=== PATIENT | male | born 1980 | race Asian ===

== ENCOUNTER 2018-10-29 04:10 | Emergency (ER) | payer OTHER, SELFPAY ==
[2018-10-29 04:11] VITALS: BP 216/138; PULSE 93; RESP 20; TEMP 36.3; O2SAT 98; BMI 32.3
--- NOTE | 2018-10-29 04:12 | CT_ITS ---
STUDY: CT ABDOMEN AND PELVIS WITHOUT CONTRAST REASON FOR EXAM: Male, 38 years old. Severe right flank pain since 3:00 AM. Elevated blood pressure. History of kidney stones treated with lithotripsy. RADIATION DOSAGE (If Supplied By Facility): CTDIvol = ( 8.48 ) mGy, DLP = ( 413.23 ) mGycm TECHNIQUE: Transaxial images were obtained from the dome of the diaphragm to the symphysis pubis without oral contrast, and without intravenous contrast. Sagittal and coronal images were reconstructed. Individualized dose optimization techniques were used for this CT. COMPARISON: 01/17/2016. FINDINGS: The visualized lung bases are unremarkable. The visualized portions of the heart are within normal limits. There is decreased attenuation of the liver consistent with steatosis. Normal gallbladder and extrahepatic biliary system. Normal spleen. Normal pancreas. Normal bilateral adrenal glands. There is a 2 mm nonobstructive right upper pole renal calculus. There is moderate hydronephrosis of the right kidney. As seen on axial images 125-126, there is a 4 mm wide distal right ureteral calculus at the S2 level. There are 6 nonobstructive left renal calculi, ranging up to 3 mm. There is an area of cortical scarring in the lateral mid left kidney. There is no demonstrated left ureteral calculus or hydronephrosis. Normal visualized stomach. Normal small intestine. Normal colon. The appendix is visualized on axial images 106-128 and it appears normal.. Normal abdominal aorta. Normal inferior vena cava. Normal retroperitoneum. Normal urinary bladder. Normal abdominal wall. There are multilevel degenerative changes of the visualized lumbar spine. There is grade 1 retrolisthesis at the L4-5 level, on a degenerative basis. CT/Abdomen/Pelvis without Cont IMPRESSION: 4 mm wide distal right ureteral calculus at the S2 level. There is associated moderate right hydronephrosis and right hydroureter. Small nonobstructive renal calculi bilaterally. Left renal cortical scarring. Fatty liver. Electronically Signed: Jovanny Michel MD at 5:12 EST , Service support ,
[2018-10-29] MEDS: Morphine 4 MG/ML Syringe IV (04:18)
[2018-10-29] MEDS: Ondansetron 4 MG/2 ML Vial IV (04:18)
[2018-10-29] MEDS: Ketorolac 30 MG/ML Syringe IV (04:18)
[2018-10-29] MEDS: 0.9% Normal Saline 1,000 ML 250 ML IV (04:18)
--- NOTE | 2018-10-29 04:20 | ED.DCSUM_ITS ---
- ER Visit Summary Date of Service: 10/29/18 Chief Complaint: Kidney stone History of Present Illness: The patient is a 38 M with history of kidney stones. Patient states he developed significant right flank pain around 3 AM this morning. He has not noted any recent difficulty with urination, hematuria, or back pain. He has required lithotripsy for his kidney stones in the past. Physical Examination: Vital signs significant for blood pressure 216/138, otherwise unremarkable. Patient is lying in bed. He is in significant pain. Head neck examination unremarkable. Heart is regular rate and rhythm. Lungs sounds are clear. Abdomen is soft with no focal anterior tenderness. He does have right CVA tenderness. Test Results: CBC is unremarkable. Chemistry studies reveal potassium 3.2. Normal renal function. Urinalysis shows blood but no sign of infection. CT flank shows a 4 mm distal right ureter stone at the level of S2. Moderate right hydro-is noted. Emergency Department Course and Treatment: Patient was given Toradol, morphine, Zofran, and IV fluids. On repeat evaluation pain is significantly improved. Blood pressure at this time is 160/111. Patient be given prescriptions for [place], Zofran, Toradol. He will follow-up with urology at [facility]. Treatment Plan: [] Disposition: Discharge Impression: Right-sided ureterolithiasis This note was generated with [employer] dictation software. It may contain incorrect words, spelling, and punctuation that were not noted in review of the chart prior to signing ED Disposition - Plan for ED Patient: Chief Complaint: Flank Pain Referrals: Thomas Escobar MD [Primary Care Provider] -
[2018-10-29 04:29] LABS: Absolute Lymphocyte Count 2.74 X10^3/ul (0.83-4.51); Absolute Neutrophil Count 2.1 X10^3/uL (2.0-7.7); Basophil# 0.03 X10^3/uL; Basophil% 0.5 % (0-1); Eosinophil# 0.29 X10^3/uL; Eosinophils% 5.2 % (0-5); Hematocrit 47.7 % (40-54); Hemoglobin 16.2 g/dl (13.0-16.5); Lymphocyte # 2.74 X10^3/ul (4.0); Lymphocyte % 48.9 % (19-41); Mean Corpuscular Hgb 30.1 pg (27.0-32.0); Mean Corpuscular Volume 88.5 fL (80-94); Mean Platelet Vol. 9.4 fl (6.2-12.0); Monocyte# 0.42 X10^3/uL; Monocyte% 7.5 % (0-10); Neutrophil # 2.11 X10^3/uL (2.7-7.7); Neutrophil % 37.7 % (47-70); Platelet Count 183 K/mm3 (150-450); RBC Distribution Width CV 13.9 % (11.6-14.6); RBC Distribution Width SD 45.1 fl (35.1-43.9); Red Blood Count 5.39 M/mm3 (4.6-6.2); White Blood Count 5.6 K/mm3 (4.4-11.0)
[2018-10-29 04:30] LABS: POSITIVE COUNT NO; POSITIVE DIFFERENTIAL NO; POSITIVE MORPHOLOGY NO
[2018-10-29 04:37] LABS: Anion Gap 10 (5-15); BUN 16 mg/dL (7-18); Chloride 109 mmol/L (98-107); Creatinine, Serum 1.07 mg/dL (0.70-1.30); EST Glomerular Filtration Rate 83 mL/min (>60); Est Glom Filt Rate - Afr Amer 100 mL/min (>60); Estimated Creatinine Clearance 73.71 ml/min; Glucose 117 mg/dL (74-106); Potassium 3.2 mmol/L (3.5-5.1); Sodium Level 145 mmol/L (136-145)
[2018-10-29 05:20] VITALS: BP 168/115; PULSE 85; RESP 14; O2SAT 98
[2018-10-29 05:21] LABS: Mucous, Urine 0 SEEN /hpf (<or=2+); White Blood Cells 0 SEEN /hpf (0-5)
[2018-10-29 05:22] LABS: Color, Urine Straw (Yellow); Glucose, Dipstick Normal (Normal); Ketone-Dipstick Negative (Negative); Leukocyte Esterase-Dipstick Negative /ul (Negative); Nitrite-Dipstick Negative (Negative); Occult Blood-Urine 250 /ul (Negative); Protein-Dipstick 30 mg/dl (Negative); Specific Gravity, Urine 1.015 (1.002-1.030); Urine Bilirubin Dipstick Negative (Negative); Urine Clarity Sl. Cloudy (Clear); Urine Urobilinogen Normal (Normal)
--- NOTE | 2018-10-29 05:36 | ED.DEP ---
ED Disposition - Plan for ED Patient: Disposition: Home or Assisted Living Chief Complaint: Flank Pain Instructions: ED Stone Renal W Colic Prescriptions: Hydrocodone Bitart/Apap 5-325 [[place] 5MG-325MG] 1 tablet PO Q6H PRN PRN 3 Days #10 tablet PRN Reason: Pain Ondansetron [Zofran Odt] 4 mg PO Q8H PRN PRN #10 tablet PRN Reason: Nausea Ketorolac [Toradol] 10 mg PO Q6H PRN #14 tablet PRN Reason: Pain Referrals: Thomas Escobar MD [Primary Care Provider] - Additional Instructions: Follow-up with urology at [facility] as discussed
[2018-10-29 05:37] LABS: Red Blood Cells-Urine 10-25 SEEN /hpf (0-5)
[2018-10-29 05:38] LABS: Bacteria RARE /hpf (None Seen); Squamous Epithelial Cells - UA 0-5 SEEN /hpf (0-5)
[2018-10-29 05:52] VITALS: BP 154/102; PULSE 82; RESP 16; O2SAT 97
[2018-10-29] MEDS: HYDROcodone Bitartrate/Apap 5/325 Tablet PO (05:53)
== END 2018-10-29 05:54 | disposition home or self-care (01) ==
PROVIDERS: Emergency Provider Emergency Medicine; Family Provider Family Medicine; PCP Family Medicine
DX: N13.2 Hydronephrosis with renal and ureteral calculous obstruction (principal); Z87.442 Personal history of urinary calculi; I10 Essential (primary) hypertension
CPT/HCPCS: 74176; 80048; 81001; 85025; 96361; 96374; 96375; 99283; J7030; A4216; J2405

== ENCOUNTER 2020-10-31 05:06 | Emergency (ER) | payer OTHER, SELFPAY ==
--- NOTE | 2020-10-31 | CT_ITS ---
STUDY: CT ABDOMEN AND PELVIS WITH CONTRAST REASON FOR EXAM: Male, 40 years old. RECTAL BLEEDING AND AB PAIN X 1 DAY RADIATION DOSAGE (If Supplied By Facility): CTDIvol = ( 10.78 ) mGy, DLP = ( 908.59 ) mGycm TECHNIQUE: Transaxial images were obtained from the dome of the diaphragm to the symphysis pubis with oral contrast. Oral and amp; IV Gastrografin and amp; 100mL Isovue-370 was administered. Sagittal and coronal images were reconstructed. Individualized dose optimization techniques were used for this CT. COMPARISON: 10/29/2018 FINDINGS: The visualized lung bases are unremarkable. The visualized portions of the heart are within normal limits. Normal liver. Normal gallbladder and extrahepatic biliary system. Normal spleen. Normal pancreas. Normal bilateral adrenal glands. Normal right kidney. Normal left kidney. Normal visualized stomach. Normal small intestine. Normal colon. The appendix is visualized and appears normal. Normal abdominal aorta. Normal inferior vena cava. Normal retroperitoneum. Normal urinary bladder. Normal abdominal wall. Normal osseous structures. CT/Abdomen/Pelvis WITH Contrast IMPRESSION: Normal enhanced CT of the abdomen and pelvis. Electronically Signed: Phillip Rao MD at 8:20 EST Tel , Service support ,
[2020-10-31 05:07] VITALS: PULSE 95; RESP 18; TEMP 36.9; O2SAT 98; BMI 34.7
[2020-10-31 05:09] VITALS: BP 139/93; PULSE 95; RESP 18; TEMP 36.9; O2SAT 98
[2020-10-31 05:30] LABS: Absolute Lymphocyte Count 1.72 X10^3/uL (0.83-4.51); Absolute Neutrophil Count 5.8 X10^3/uL (2.0-7.7); Basophil# 0.05 X10^3/uL; Basophil% 0.6 % (0-1); Eosinophil# 0.31 X10^3/uL; Eosinophils% 3.5 % (0-5); Hematocrit 48.1 % (40-54); Hemoglobin 15.8 g/dL (13.0-16.5); Lymphocyte # 1.72 X10^3/ul (4.0); Lymphocyte % 19.7 % (19-41); Mean Corp Hgb Conc 32.8 g/dL (32-36); Mean Corpuscular Volume 88.3 fL (80-94); Mean Platelet Vol. 8.9 fl (6.2-12.0); Monocyte# 0.86 X10^3/uL; Monocyte% 9.8 % (0-10); NRBC Flagged by Analyzer 0 % (0-5); Neutrophil # 5.77 X10^3/uL (2.7-7.7); Neutrophil % 66.1 % (47-70); Platelet Count 211 K/mm3 (150-450); RBC Distribution Width CV 13.6 % (11.6-14.6); RBC Distribution Width SD 43.7 fl (35.1-43.9); Red Blood Count 5.45 M/mm3 (4.6-6.2); White Blood Count 8.7 K/mm3 (4.4-11.0)
--- NOTE | 2020-10-31 05:32 | ED.VISSUMM ---
- ER Visit Summary Date of Service: 10/31/20 Chief Complaint: Abdominal pain History of Present Illness: The patient is a 40 M presenting with abdominal pain, blood in stool. He states this started yesterday. He states he has been straining to have bowel movements. He started having bright red blood per rectum yesterday. Denies diarrhea. Denies nausea or vomiting. He states he has pain in his rectum and his mid abdomen. Denies other complaints. Physical Examination: Vitals are stable. Patient is afebrile. Alert no acute distress. HEENT exam is unremarkable. Neck is supple. Lungs are clear and equal bilaterally. Heart is regular rate and rhythm. Abdomen is soft periumbilical tenderness with no rebound or guarding Rectal: No external hemorrhoids Extremities are unremarkable. Skin is warm and dry. Remainder of exam is unremarkable. Emergency Department Course and Treatment: Patient given IV fluids, morphine, Zofran. CBC, chemistries unremarkable. Liver lipase are normal. Stool is guaiac positive. CT abdomen pelvis is pending at this time and will be checked out to the oncoming physician. Disposition: pending Impression: Abdominal pain, lower GI bleeding This note was generated with [employer] dictation software. It may contain incorrect words, spelling, and punctuation that were not noted in review of the chart prior to signing ED Disposition - Plan for ED Patient: Referrals: Thomas Escobar MD [Primary Care Provider] -
[2020-10-31 05:54] LABS: ALB/GLOB Ratio 0.9 RATIO (0.9-2.4); AST(SGOT) 21 U/L (15-37); Alanine Aminotransfer ALT/SGPT 43 U/L (16-61); Albumin, Serum 3.6 g/dL (3.2-5.0); Alkaline Phosphatase 74 U/L (45-117); Anion Gap 5 (5-15); BUN 18 mg/dL (7-18); BUN/Creat Ratio 16.2 RATIO (10-20); Chloride 108 mmol/L (98-107); Creatinine, Serum 1.11 mg/dL (0.70-1.30); EST Glomerular Filtration Rate 79 mL/min (>60); Est Glom Filt Rate - Afr Amer 95 mL/min (>60); Estimated Creatinine Clearance 69.68 ml/min; Globulin 4.2 g/dL (2.2-4.2); Glucose 133 mg/dL (74-106); Lipase 193 U/L (73-393); Potassium 3.9 mmol/L (3.5-5.1); Protein, Total 7.8 g/dL (6.4-8.2); Sodium Level 138 mmol/L (136-145)
[2020-10-31] MEDS: 0.9% Normal Saline 1,000 ML 1000 ML IV (05:54)
[2020-10-31] MEDS: Morphine 4 MG/ML Syringe IV (05:54)
[2020-10-31] MEDS: Ondansetron 4 MG/2 ML Vial IV (05:55)
[2020-10-31 07:33] VITALS: BP 131/93; PULSE 82; RESP 16; O2SAT 99
--- NOTE | 2020-10-31 09:04 | ED.VISSUMM ---
- ER Visit Summary Date of Service: 10/31/20 Chief Complaint: [] History of Present Illness: The patient is a 40 M [] Physical Examination: [] Test Results: [] Emergency Department Course and Treatment: [] Treatment Plan: [] Disposition: [] Impression: [] This note was generated with [employer] dictation software. It may contain incorrect words, spelling, and punctuation that were not noted in review of the chart prior to signing ED Disposition - Plan for ED Patient: Disposition: Home or Assisted Living Instructions: ED Lower GI Bleeding (Stable) Prescriptions: Hydrocortisone Acetate [Anusol-Hc] 25 mg RC BID #28 supp.rect Prescription Printed Omeprazole 20 mg PO DAILY #30 capsule.dr Prescription Printed Referrals: Thomas Escobar MD [Primary Care Provider] - 2 Days Bernard Hay MD [NON-STAFF] - 5-7 Days
[2020-10-31 09:26] VITALS: BP 126/74; PULSE 74; RESP 16; O2SAT 99
== END 2020-10-31 09:27 | disposition home or self-care (01) ==
PROVIDERS: Emergency Medicine; Emergency Provider Emergency Medicine; PCP Family Medicine
DX: K62.5 Hemorrhage of anus and rectum (principal)
CPT/HCPCS: 74177; 80053; 82274; 83690; 85025; 96361; 96374; 96375; 99283; J7030; Q9967; A4216; J2405

== ENCOUNTER 2021-04-08 06:09 | Emergency (ER) | payer OTHER, SELFPAY ==
[2021-04-08 06:09] VITALS: BP 162/103; PULSE 132; RESP 25; TEMP 37.2; O2SAT 99; BMI 33.5
--- NOTE | 2021-04-08 06:19 | EKG12_ITS ---
Test Reason : SOB Blood Pressure : / mmHG Vent. Rate : 120 BPM Atrial Rate : 120 BPM P-R Int : 144 ms QRS Dur : 076 ms QT Int : 304 ms P-R-T Axes : 071 041 039 degrees QTc Int : 429 ms Sinus tachycardia Poor R wave progression Confirmed by JUAN NÚÑEZ, ABELINO ([id number]), video news editor JAMAL VALLEJO ([id number]) on 04/12/2021 6:58:51 AM Referred By: ANT Confirmed By:ABELINO MARTINEZ MD
--- NOTE | 2021-04-08 06:25 | RAD_ITS ---
STUDY: X-RAY CHEST REASON FOR EXAM: Male, 40 years old. sob TECHNIQUE: Single AP portable view of the chest. COMPARISON: None. FINDINGS: The lungs are clear and expanded. There is no demonstrated pleural abnormality. Normal size heart. Normal mediastinum and almita. Normal visualized pulmonary arteries. Normal visualized aortic arch and descending thoracic aorta. Normal visualized thoracic spine. Normal visualized ribs, clavicles, and shoulders. There is no demonstrated abnormality of the visualized soft tissue structures of the upper abdomen. RAD/Chest 1 View (Portable) IMPRESSION: Normal x-ray examination of the chest. Electronically Signed: Bryan Norton DO at 6:49 EDT Tel , Service support ,
[2021-04-08 06:30] LABS: Absolute Neutrophil Count 6.3 X10^3/uL (2.0-7.7); Basophil# 0.03 X10^3/uL; Basophil% 0.4 % (0-1); Eosinophil# 0.13 X10^3/uL; Eosinophils% 1.7 % (0-5); Hematocrit 46.2 % (40-54); Hemoglobin 15.8 g/dL (13.0-16.5); Lymphocyte % 10.3 % (19-41); Mean Corp Hgb Conc 34.2 g/dL (32-36); Mean Corpuscular Hgb 29.8 pg (27.0-32.0); Mean Corpuscular Volume 87.2 fL (80-94); Mean Platelet Vol. 9.4 fl (6.2-12.0); Monocyte# 0.52 X10^3/uL; Monocyte% 6.7 % (0-10); NRBC Flagged by Analyzer 0 % (0-5); Neutrophil # 6.29 X10^3/uL (2.7-7.7); Neutrophil % 80.6 % (47-70); Platelet Count 170 K/mm3 (150-450); RBC Distribution Width CV 13.1 % (11.6-14.6); RBC Distribution Width SD 41.2 fl (35.1-43.9); White Blood Count 7.8 K/mm3 (4.4-11.0)
--- NOTE | 2021-04-08 06:35 | EDS_ITS ---
HPI History of Present Illness Chief Complaint: Shortness of Breath Informant: patient Onset/Context/Timing Context: - (Woke with symptoms) Timing: Continuous Current Severity: Moderate Maximum Severity: Severe Narrative Narrative: Patient presents secondary to shortness of breath. Patient states he woke at 230 this morning with significant shortness of breath. He tried using his inhaler without improvement. Patient denies history of asthma or COPD. He was recently exposed to some chemicals at work that caused a lung reaction. He is now on Advair and has an albuterol rescue inhaler. He states he felt well when he went to bed last night. He does complain of some chest pain. No fever or chills. Patient did get his second Covid vaccine shot yesterday. [facility] Medical History Hypertension Kidney stones Home Medications ergocalciferol (vitamin D2) 50,000 unit PO Q7D 10/31/20 [History Last Taken Unknown] lisinopril 10 mg PO DAILY 10/31/20 [History Last Taken Unknown] albuterol sulfate 2 puff INHALATION Q6H PRN 04/08/21 [History Last Taken Unknown] fluticasone propion-salmeterol [Advair HFA] 2 puff INHALATION BID 04/08/21 [History Last Taken Unknown] Allergy/AdvReac Type Severity Reaction Status Date / Time oxycodone HCl [From Percocet] AdvReac Vomiting Verified 04/08/21 06:14 Social History Smoking Status: Never smoker [facility] ED Constitutional Constitutional ED: Denies chills or fever(s) Eyes Eyes: Denies change in vision ENT ENT ED: Denies sore throat Cardiovascular Cardiovascular: Reports chest pain Respiratory/Chest Respiratory/Chest: Reports dyspnea; Denies cough Gastrointestinal Gastrointestinal: Denies abdominal pain, diarrhea, nausea or vomiting Genitourinary Genitourinary ED: Denies dysuria Musculoskeletal Musculoskeletal: Denies back pain Integumentary Denies rash Neurologic Neurologic: Denies headache(s) or weakness Psychiatric Psychiatric: Denies anxiety or depression Endocrine Endocrinology: Denies polydipsia or polyuria Allergic/Immunologic Allergic/Immunologic ED: Denies urticaria EXAM Physical Exam Const Vital Signs: 04/08/21 06:09 04/08/21 06:19 04/08/21 07:08 Temperature 98.9 F Temperature Source Temporal Pulse Rate 132 H 107 H Respiratory Rate 25 H 23 H Respiratory Effort Short of Breath Labored Respiratory Depth Shallow Respiratory Pattern Tachypnea Blood Pressure 162/103 H 160/108 H Blood Pressure Mean 122 125 Pulse Ox 99 100 Oxygen Delivery Method Room Air Room Air Positive well nourished and well developed General Appearance ED: well developed HEENT Reports normocephalic and head/scalp atraumatic Eyes PERRL and EOMs intact bilaterally Neck supple Chest Wall inspection of chest normal and palpation of chest normal Resp clear to auscultation bilaterally Resp Narrative: Tachypnea Cardio regular rhythm Rate: tachycardic GI non-tender Auscultation: hypoactive bowel sounds Palpation: soft Extremity normal to inspection General Extremety ED: Negative for edema General Extremity: Negative for edema Neuro oriented x3 and no sensory deficits noted Sensorium / Orientation: alert Motor Exam: strength 5/5 throughout Psych mental status grossly normal Skin no rashes or lesions noted MDM MDM MDM Narrative Medical decision making narrative: Patient had EKG obtained on arrival. Portable chest x-ray and lab work is performed. Lab Data Attestation: I reviewed the patient's lab results. Labs: Laboratory Results - last 24 hr 04/08/21 04/08/21 04/08/21 06:25 06:25 06:25 WBC 7.8 RBC 5.30 Hgb 15.8 Hct 46.2 MCV 87.2 MCH 29.8 MCHC 34.2 RDW Std Deviation 41.2 RDW Coeff of Molly 13.1 Plt Count 170 MPV 9.4 Immature Gran % (Auto) 0.300 Neut % (Auto) 80.6 H Lymph % (Auto) 10.3 L [place] % (Auto) 6.7 Eos % (Auto) 1.7 Baso % (Auto) 0.4 Absolute Neuts (auto) 6.3 Absolute Lymphs (auto) 0.80 L Nucleated RBC % 0 D-Dimer Quant (PE/DVT) 0.42 Sodium 142 Potassium 3.5 Chloride 110 H Carbon Dioxide 23.0 Anion Gap 9 BUN 13 Creatinine 1.25 Estim Creat Clear Calc 61.88 Est GFR (MDRD) Af Amer 83 Est GFR (MDRD) Non-Af 68 BUN/Creatinine Ratio 10.4 Glucose 121 H Calcium 9.1 Troponin I High Sens 20.2 Radiography Chest X-Ray - ED: 1 View, Normal, Heart, Lungs and Mediastinum Diagnostic Testing: Radiology Impression Chest X-Ray 04/08/21 06:25 IMPRESSION: Normal x-ray examination of the chest. Electronically Signed: Bryan Norton DO at 6:49 EDT Tel , Service support , EKG Initial EKG: Attestation: I personally reviewed and interpreted this EKG as follows: Interpretation: Sinus Tachycardia (Sinus tach at 120. No acute ST change.) Treatment and Re-Evaluation Comments:: Patient's heart rate improved to 120 but he remained quite tachypneic. He started complaining of his face feeling funny with some numbness and tingling. Nonrebreather mask was placed over his face but not connected to oxygen. At this time heart rate is improved to 105 and respiratory rate is in the low to mid 20s. Test results are discussed with him. Chest x-ray is unremarkable. CBC is unremarkable. D-dimer is normal at 0.42. Chemistry studies are unremarkable. His troponin returns at 20. At this time patient will have a 2-hour repeat EKG and troponin performed. This was discussed with him at bedside and he is in agreement with the plan. Patient was given a dose of Solu-Medrol to help with lung inflammation in light of his prior chemical exposure. Patient will be signed out oncoming physician for final disposition. Discharge Plan Triage Chief Complaint: Shortness of Breath ED Provider: Lorena Smith Dx/Rx/DC Orders Clinical Impression: Acute dyspnea Prescriptions: No Action lisinopril 20 MG tablet 10 mg PO DAILY RF: 0 ergocalciferol (vitamin D2) 50,000 UNIT capsule 50,000 unit PO Q7D RF: 0 Advair HFA 230-21 mcg/actuation Hfa Aerosol Inhaler 2 puff INHALATION BID RF: 0 albuterol sulfate 90 mcg/actuation Hfa Aerosol Inhaler 2 puff INHALATION Q6H PRN (Reason: SOB) RF: 0 Primary Care Provider: Thomas Escobar Referrals: Thomas Escobar MD [Primary Care Provider] -
[2021-04-08 06:40] LABS: D-Dimer Quantitative (DVT/PE) 0.42 FEU/ug/m (0.27-0.49)
[2021-04-08 06:59] LABS: Anion Gap 9 (5-15); BUN 13 mg/dL (7-18); BUN/Creat Ratio 10.4 RATIO (10-20); Calcium,Total 9.1 mg/dL (8.5-10.1); Chloride 110 mmol/L (98-107); Creatinine, Serum 1.25 mg/dL (0.70-1.30); EST Glomerular Filtration Rate 68 mL/min (>60); Est Glom Filt Rate - Afr Amer 83 mL/min (>60); Estimated Creatinine Clearance 61.88 ml/min; Glucose 121 mg/dL (74-106); Potassium 3.5 mmol/L (3.5-5.1); Sodium Level 142 mmol/L (136-145); Troponin-I HS 20.2 pg/mL (3.0-78.5)
[2021-04-08] MEDS: MethylPREDNISolone 125 MG/2 ML Vial IV (07:07)
[2021-04-08 07:08] VITALS: BP 160/108; PULSE 107; RESP 23; O2SAT 100
--- NOTE | 2021-04-08 08:30 | EKG12_ITS ---
Test Reason : REPEAT Blood Pressure : / mmHG Vent. Rate : 120 BPM Atrial Rate : 120 BPM P-R Int : 150 ms QRS Dur : 078 ms QT Int : 320 ms P-R-T Axes : 060 032 026 degrees QTc Int : 452 ms Sinus tachycardia Poor R wave progression Confirmed by JUAN NÚÑEZ, ABELINO ([id number]), marketing editor JAMAL VALLEJO ([id number]) on 04/12/2021 6:59:10 AM Referred By: ANT Confirmed By:ABELINO MARTINEZ MD
[2021-04-08 09:04] LABS: Troponin-I HS 17.4 pg/mL (3.0-78.5)
[2021-04-08 09:15] VITALS: BP 137/82; PULSE 76; RESP 15; O2SAT 99
== END 2021-04-08 09:16 | disposition home or self-care (01) ==
PROVIDERS: Emergency Provider Emergency Medicine; PCP Family Medicine
DX: R06.00 Dyspnea, unspecified (principal); R06.02 Shortness of breath; I10 Essential (primary) hypertension; Z79.51 Long term (current) use of inhaled steroids; Z79.899 Other long term (current) drug therapy
CPT/HCPCS: 71045; 80048; 84484; 85025; 85379; 93005; 96374; 99284; A4216

== ENCOUNTER 2021-06-14 11:07 | Emergency (ER) | payer OTHER, SELFPAY ==
[2021-06-14 11:07] VITALS: BP 167/113; PULSE 102; RESP 16; TEMP 36.2; O2SAT 100; BMI 32.9
--- NOTE | 2021-06-14 11:24 | EKG12_ITS ---
Test Reason : SOB Blood Pressure : / mmHG Vent. Rate : 098 BPM Atrial Rate : 098 BPM P-R Int : 166 ms QRS Dur : 084 ms QT Int : 396 ms P-R-T Axes : 053 023 034 degrees QTc Int : 505 ms Normal sinus rhythm Nonspecific ST abnormality Prolonged QT Abnormal ECG Confirmed by JUAN NÚÑEZ, ABELINO ([id number]), story editor JAMAL VALLEJO ([id number]) on 06/15/2021 9:58:00 AM Referred By: Confirmed By:ABELINO MARTINEZ MD
--- NOTE | 2021-06-14 11:25 | ED.VIS.DYS ---
HPI History of Present Illness Chief Complaint: Shortness of Breath Detail of Chief Complaint: Shortness of breath off and on since January Informant: patient Narrative Narrative: Patient presents to the emergency department complaint of shortness of breath that he has had off and on since January. Patient states that he was exposed to some chemicals in January and has had intermittent difficulty breathing. Patient has been vaccinated against COVID-19. Patient states that over the last 3 days has had increasing shortness of breath. On June 02 he had pulmonary function tests and states that he was pushed too hard. Patient denies any fevers. He does complain of numbness and tingling to his entire body. He denies any chest pain currently. Patient states that the symptoms became worse while at work today. No history of anxiety or panic attacks. [facility] Medical History Hypertension Kidney stones Home Medications ergocalciferol (vitamin D2) 50,000 unit PO Q7D 10/31/20 [History Last Taken Unknown] lisinopril 10 mg PO DAILY 10/31/20 [History Last Taken Unknown] albuterol sulfate 2 puff INHALATION Q6H PRN 04/08/21 [History Last Taken Unknown] fluticasone propion-salmeterol [Advair HFA] 2 puff INHALATION BID 04/08/21 [History Last Taken Unknown] lorazepam [Ativan] 1 mg PO TID PRN #10 tab 06/14/21 [Rx Last Taken Unknown] prednisone 20 mg PO BID #6 tab 06/14/21 [Rx Last Taken Unknown] Allergy/AdvReac Type Severity Reaction Status Date / Time oxycodone HCl [From Percocet] AdvReac Vomiting Verified 06/14/21 11:12 Social History Smoking Status: Never smoker ROS ROS ED Constitutional Constitutional ED: Reports systems reviewed and no addt'l complaints, except as documented; Denies body ache(s), change in weight or chills Eyes Eyes: Denies acute decrease in peripheral vision, change in vision, double vision or loss of vision ENT ENT ED: Reports none; Denies ear pain, lip swelling, loss taste/smell, neck pain, otalgia or sore throat Cardiovascular Cardiovascular: Reports none; Denies abdominal pain, chest pain with activity, leg edema, lightheadedness, palpitations, rapid heart rate or syncope Respiratory/Chest Respiratory/Chest: Reports none and dyspnea; Denies change in mental status, dry cough, hemoptysis, shortness of breath at rest or shortness of breath with exertion Gastrointestinal Gastrointestinal: Reports none; Denies abdominal pain, change in stool character, diarrhea, hematemesis, hematochezia, melena, rectal bleeding or vomiting Genitourinary Genitourinary ED: Reports none; Denies abdominal discomfort, anuria, dysuria, genital pain or polyuria Musculoskeletal Musculoskeletal: Reports none; Denies arthralgias, back pain, difficulty walking, extremity pain, muscle weakness or myalgias Integumentary Reports none; Denies abscess or rash Neurologic Neurologic: Reports none and paresthesias; Denies abnormal gait, confusion, focal weakness, frequent falls, headache(s), loss of vision, numbness, radicular pain, vertigo or weakness Psychiatric Psychiatric: Reports systems reviewed and no addt'l complaints, except as documented and none; Denies behavioral changes, confusion, difficulty concentrating, hallucinations, suicidal ideation, tactile hallucinations or visual hallucinations Endocrine Endocrinology: Denies none, cold intolerance, excessive sweating, fatigue or heat intolerance Hematologic/Lymphatic Hematologic/Lymphatic: Reports none; Denies anemia, easy bleeding or easy bruising Allergic/Immunologic Allergic/Immunologic ED: Denies as per HPI, none, lip swelling, mouth swelling, throat swelling, tongue swelling or hives EXAM Physical Exam Narrative Exam Narrative: Patient appears anxious and is tachypneic and hyperventilating. Const Vital Signs: 06/14/21 11:07 06/14/21 12:08 06/14/21 12:13 Temperature 97.2 F L Temperature Source Temporal Pulse Rate 102 H 96 Respiratory Rate 16 19 H Respiratory Effort Short of Breath Respiratory Depth Normal Respiratory Pattern Normal Blood Pressure 167/113 H Blood Pressure Mean 131 Pulse Ox 100 Oxygen Delivery Method Room Air Room Air Positive well nourished and well developed General Appearance ED: well developed and NAD HEENT Reports TM's clear and moist mucous membranes normocephalic and atraumatic; Negative for trauma or tenderness Tympanic Membrane ED: Yes TM's clear Eyes PERRL and EOMs intact bilaterally General Eye ED: Negative for pale conjunctiva or scleral icterus Neck no lymphadenopathy, supple and no JVD General: Negative for tenderness Chest Wall inspection of chest normal and palpation of chest normal Chest: Negative for tenderness Resp normal respiratory effort and clear to auscultation bilaterally Resp Narrative: Tachypneic with some mild conversational dyspnea and hyperventilation. Effort and Inspection: Negative for respiratory distress or pain with movement Auscultation: Negative for rhonchi, wheezes or diminished lung sounds Cardio regular rate, regular rhythm, S1 normal heart sound, S2 normal heart sound and no murmurs Peripheral Pulses: pulses 2+ throughout GI normal to inspection, nondistended, normoactive bowel sounds, soft to palpation, non-tender, non-distended and no masses Back/Spine no CVA tenderness and no thoracic nor lumbar tenderness Extremity normal to inspection General Extremety ED: Negative for edema General Extremity: Negative for edema Neuro oriented x3, CN's II-XII intact bilaterally, no sensory deficits noted and gait normal Sensorium / Orientation: awake, alert, oriented to person, oriented to place and oriented to time Motor Exam: strength 5/5 throughout and strength abnormal Psych mental status grossly normal Skin no rashes or lesions noted and no wounds MDM MDM MDM Narrative Medical decision making narrative: Etiology of patient's dyspnea unclear if related to anxiety versus related to his exposure months ago to ammonia fumes and chemicals. He did not have significant wheezing on arrival. He did respond well to a DuoNeb aerosol here as well as a milligram of Ativan and he is now essentially symptom-free. I will start him on prednisone for 3 days. 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 Patient also will be given a prescription for Ativan as needed for anxiety. Lab Data Labs: Laboratory Results - last 24 hr 06/14/21 06/14/21 06/14/21 11:44 11:44 11:44 WBC 6.5 RBC 5.48 Hgb 16.2 Hct 47.5 MCV 86.7 MCH 29.6 MCHC 34.1 RDW Std Deviation 40.0 RDW Coeff of Molly 12.6 Plt Count 227 MPV 9.3 Immature Gran % (Auto) 0.200 Neut % (Auto) 45.6 L Lymph % (Auto) 41.9 H [place] % (Auto) 6.8 Eos % (Auto) 4.9 Baso % (Auto) 0.6 Absolute Neuts (auto) 3.0 Absolute Lymphs (auto) 2.72 Nucleated RBC % 0 D-Dimer Quant (PE/DVT) <= 0.27 Sodium 139 Potassium 3.1 L Chloride 107 Carbon Dioxide 26.0 Anion Gap 6 BUN 11 Creatinine 1.16 Estim Creat Clear Calc 66.68 Est GFR (MDRD) Af Amer 90 Est GFR (MDRD) Non-Af 75 BUN/Creatinine Ratio 9.5 L Glucose 99 Calcium 9.5 Troponin I High Sens 14 Radiography Chest X-Ray - ED: 1 View Diagnostic Testing: Radiology Impression Chest X-Ray 06/14/21 12:10 IMPRESSION: No radiographic evidence of acute cardiopulmonary disease. at 1249 Reported and signed by: Aquiles Merrill MD Electronically Signed: Aquiles Merrill MD at 12:48 EDT Tel , Service support , 1 view chest x-ray obtained interpreted by myself as no acute disease process. EKG Initial EKG: Comments: Sinus rhythm with a ventricular rate of [address] changes Discharge Plan Triage Chief Complaint: Shortness of Breath ED Provider: Cisco Walsh Dx/Rx/DC Orders Clinical Impression: Acute dyspnea, Anxiety Instructions: ED Anxiety Reaction, ED Dyspnea Prescriptions: New prednisone 20 mg tablet 20 mg PO BID Qty: 6 RF: 0 lorazepam [Ativan] 1 mg tablet 1 mg PO TID PRN (Reason: anxiety) Qty: 10 RF: 0 No Action lisinopril 20 MG tablet 10 mg PO DAILY RF: 0 ergocalciferol (vitamin D2) 50,000 UNIT capsule 50,000 unit PO Q7D RF: 0 Advair HFA 230-21 mcg/actuation Hfa Aerosol Inhaler 2 puff INHALATION BID RF: 0 albuterol sulfate 90 mcg/actuation Hfa Aerosol Inhaler 2 puff INHALATION Q6H PRN (Reason: SOB) RF: 0 Primary Care Provider: Remberto Woodruff NP Referrals: Remberto Woodruff NP, DIRECTOR OF ENROLLMENT-C [Primary Care Provider] - 3-5 Days Disposition Disposition: Home, Self Care
[2021-06-14] MEDS: LORazepam 2 MG/ML Syringe 1 MG IV (11:47)
[2021-06-14] MEDS: 0.9% Normal Saline 1,000 ML 150 ML IV (11:52)
[2021-06-14 11:57] LABS: Absolute Lymphocyte Count 2.72 X10^3/uL (0.83-4.51); Basophil# 0.04 X10^3/uL; Basophil% 0.6 % (0-1); Eosinophil# 0.32 X10^3/uL; Eosinophils% 4.9 % (0-5); Hematocrit 47.5 % (40-54); Hemoglobin 16.2 g/dL (13.0-16.5); Lymphocyte # 2.72 X10^3/ul (0.83-4.51); Lymphocyte % 41.9 % (19-41); Mean Corp Hgb Conc 34.1 g/dL (32-36); Mean Corpuscular Hgb 29.6 pg (27.0-32.0); Mean Corpuscular Volume 86.7 fL (80-94); Mean Platelet Vol. 9.3 fl (6.2-12.0); Monocyte# 0.44 X10^3/uL; Monocyte% 6.8 % (0-10); NRBC Flagged by Analyzer 0 % (0-5); Neutrophil # 2.96 X10^3/uL (2.7-7.7); Neutrophil % 45.6 % (47-70); Platelet Count 227 K/mm3 (150-450); RBC Distribution Width CV 12.6 % (11.6-14.6); Red Blood Count 5.48 M/mm3 (4.6-6.2); White Blood Count 6.5 K/mm3 (4.4-11.0)
[2021-06-14] MEDS: Ipratropium/Albuterol Sulfate 3 ML AMPUL.NEB INHALATION (12:07)
[2021-06-14 12:08] VITALS: PULSE 96; RESP 19
--- NOTE | 2021-06-14 12:10 | RAD_ITS ---
EXAM: XR CHEST, 1 VIEW : 1980 CLINICAL INDICATION: dyspnea TECHNIQUE: Frontal view of the chest. This report was created using [employer] report generation technology. COMPARISON: 04/08/2021 FINDINGS: LUNGS AND PLEURAL SPACES: Unremarkable. No consolidation or edema. No pneumothorax. No effusion. HEART: Unremarkable. Cardiac silhouette not enlarged. MEDIASTINUM: Central airways and mediastinal contour are unremarkable. BONES/JOINTS: Unremarkable. SOFT TISSUES: Unremarkable. RAD/Chest 1 View (Portable) IMPRESSION: No radiographic evidence of acute cardiopulmonary disease. at 1249 Reported and signed by: Aquiles Merrill MD Electronically Signed: Aquiles Merrill MD at 12:48 EDT Tel , Service support ,
[2021-06-14 12:11] LABS: D-Dimer Quantitative (DVT/PE) <= 0.27 FEU/ug/m (0.27-0.49)
[2021-06-14 12:13] VITALS: O2SAT 95
[2021-06-14 12:14] LABS: Anion Gap 6 (5-15); BUN 11 mg/dL (7-18); BUN/Creat Ratio 9.5 RATIO (10-20); Calcium,Total 9.5 mg/dL (8.5-10.1); Chloride 107 mmol/L (98-107); Creatinine, Serum 1.16 mg/dL (0.70-1.30); EST Glomerular Filtration Rate 75 mL/min (>60); Est Glom Filt Rate - Afr Amer 90 mL/min (>60); Estimated Creatinine Clearance 66.68 ml/min; Glucose 99 mg/dL (74-106); Potassium 3.1 mmol/L (3.5-5.1); Sodium Level 139 mmol/L (136-145); Troponin-I HS 14 pg/mL (3.0-78.0)
[2021-06-14 13:33] VITALS: BP 165/118; PULSE 105; RESP 16; O2SAT 96
== END 2021-06-14 13:34 | disposition home or self-care (01) ==
PROVIDERS: Emergency Provider Emergency Medicine; PCP Nurse Practitioner Family
DX: R06.00 Dyspnea, unspecified (principal); F41.9 Anxiety disorder, unspecified
CPT/HCPCS: 71045; 80048; 84484; 85025; 85379; 87426; 93005; 94640; 96361; 96374; 99285; J7030

== ENCOUNTER 2021-10-14 04:10 | Emergency (ER) | payer OTHER, SELFPAY ==
[2021-10-14 04:10] VITALS: BP 183/109; PULSE 93; RESP 23; TEMP 36.6; O2SAT 99; BMI 33.7
--- NOTE | 2021-10-14 04:19 | RAD_ITS ---
STUDY: X-RAY CHEST REASON FOR EXAM: Male, 41 years old. pain TECHNIQUE: Single AP portable view of the chest. COMPARISON: None. FINDINGS: The lungs are clear and expanded. There is no demonstrated pleural abnormality. Normal size heart. Normal mediastinum and almita. Normal visualized pulmonary arteries. Normal visualized aortic arch and descending thoracic aorta. There is a levoscoliosis of the thoracic spine. Deformity of the right upper ribs. There is no demonstrated abnormality of the visualized soft tissue structures of the upper abdomen. RAD/Chest 1 View (Portable) IMPRESSION: No demonstrated acute cardiopulmonary process. Electronically Signed: Gayle Quick MD at 5:46 EST Tel , Service support ,
--- NOTE | 2021-10-14 04:19 | EKG12_ITS ---
Test Reason : DYSRHYTHMIA Blood Pressure : / mmHG Vent. Rate : 090 BPM Atrial Rate : 090 BPM P-R Int : 170 ms QRS Dur : 082 ms QT Int : 354 ms P-R-T Axes : 048 023 026 degrees QTc Int : 433 ms Normal sinus rhythm Normal ECG Confirmed by RANDELL NÚÑEZ, DEVORA ([id number]), video news editor BHAVESH TANG ([id number]) on 10/19/2021 12:10:28 PM Referred By: ANT Confirmed By:DEVORA MEJIAS MD
--- NOTE | 2021-10-14 04:21 | EDS_ITS ---
HPI History of Present Illness Chief Complaint: Other, Pain/Inj Informant: patient Onset/Context/Timing Onset: Weeks Context: Gradual Onset Timing: Waxes and wanes Current Severity: Severe Maximum Severity: Severe Narrative Narrative: Patient presents secondary to right arm pain. He reports having right arm pain that is been waxing and waning over the past week or slightly longer. No injury. He states usually pain is worse when he lies down horizontally. When he standing upright he still feels an ache in that arm. No significant paresthesias. He is right-hand dominant. He was woken from sleep earlier this morning with severe pain in his right arm. [facility] Medical History Anxiety Hypertension Kidney stones Home Medications ergocalciferol (vitamin D2) 50,000 unit PO Q7D 10/31/20 [History Last Taken Unknown] lisinopril 10 mg PO DAILY 10/31/20 [History Last Taken Unknown] albuterol sulfate 2 puff INHALATION Q6H PRN 04/08/21 [History Last Taken Unknown] fluticasone propion-salmeterol [Advair HFA] 2 puff INHALATION BID 04/08/21 [History Last Taken Unknown] lorazepam [Ativan] 1 mg PO TID PRN #10 tab 06/14/21 [Rx Last Taken Unknown] prednisone 20 mg PO BID #6 tab 06/14/21 [Rx Last Taken Unknown] cyclobenzaprine 10 mg PO BID PRN #10 tab 10/14/21 [Rx Last Taken Unknown] naproxen [Naprosyn] 500 mg PO BID PRN #20 tab 10/14/21 [Rx Last Taken Unknown] Allergy/AdvReac Type Severity Reaction Status Date / Time oxycodone HCl [From Percocet] AdvReac Vomiting Verified 06/14/21 11:12 Social History Smoking Status: Never smoker ROS ROS ED Constitutional Constitutional ED: Denies chills or fever(s) Eyes Eyes: Denies change in vision ENT ENT ED: Denies sore throat Cardiovascular Cardiovascular: Denies chest pain Respiratory/Chest Respiratory/Chest: Denies cough or dyspnea Gastrointestinal Gastrointestinal: Denies abdominal pain, nausea or vomiting Musculoskeletal Musculoskeletal: Reports arthralgias; Denies back pain or neck pain Integumentary Denies rash Neurologic Neurologic: Denies headache(s), paresthesias or weakness Allergic/Immunologic Allergic/Immunologic ED: Denies urticaria EXAM Physical Exam Const Vital Signs: 10/14/21 04:10 Temperature 97.8 F Temperature Source Temporal Pulse Rate 93 Respiratory Rate 23 H Blood Pressure 183/109 H Blood Pressure Mean 133 Pulse Ox 99 Oxygen Delivery Method Room Air Positive well nourished and well developed General Appearance ED: well developed HEENT Reports moist mucous membranes Eyes PERRL and EOMs intact bilaterally Neck supple Chest Wall inspection of chest normal and palpation of chest normal Resp normal respiratory effort and clear to auscultation bilaterally Cardio regular rate and regular rhythm GI non-tender Palpation: soft Extremity Extremity Narrative: No reproducible tenderness with palpation along the right upper extremity. Strong distal pulses. Normal cap refill distally. No tenderness over the shoulder or cervical paraspinal muscles. Neuro oriented x3 Neuro Narrative: No focal neurologic deficits. Sensorium / Orientation: alert Psych mental status grossly normal Skin no rashes or lesions noted MDM MDM MDM Narrative Medical decision making narrative: EKG, chest x-ray, lab work obtained. Patient given morphine and Zofran for pain. Lab Data Attestation: I reviewed the patient's lab results. Labs: Laboratory Results - last 24 hr 10/14/21 10/14/21 04:30 04:30 WBC 4.5 RBC 5.02 Hgb 14.8 Hct 42.3 MCV 84.3 MCH 29.5 MCHC 35.0 RDW Std Deviation 41.8 RDW Coeff of Molly 13.5 Plt Count 183 MPV 9.5 Immature Gran % (Auto) 0.200 Neut % (Auto) 42.1 L Lymph % (Auto) 41.2 H [place] % (Auto) 9.8 Eos % (Auto) 6.0 H Baso % (Auto) 0.7 Absolute Neuts (auto) 1.9 L Absolute Lymphs (auto) 1.85 Nucleated RBC % 0 ESR 7 Sodium 141 Potassium 3.7 Chloride 112 H Carbon Dioxide 22.0 Anion Gap 7 BUN 21 H Creatinine 1.13 Estim Creat Clear Calc 67.78 Est GFR (MDRD) Af Amer 93 Est GFR (MDRD) Non-Af 77 BUN/Creatinine Ratio 18.6 Glucose 180 H Calcium 8.2 L Troponin I High Sens 12 C-React Prot Ext Range 4.12 H Radiography Chest X-Ray - ED: 1 View, Read by ED Physician and Chronic Changes Diagnostic Testing: Clinical Impression(s) from Imaging Studies Chest X-Ray 10/14/21 04:19 IMPRESSION: No demonstrated acute cardiopulmonary process. Electronically Signed: Gayle Quick MD at 5:46 EST Tel , Service support , EKG Initial EKG: Attestation: I personally reviewed and interpreted this EKG as follows: Interpretation: Sinus Rhythm (Sinus at 90 with no acute ischemia.) Treatment and Re-Evaluation Comments:: On repeat evaluation patient resting more comfortably. Blood pressure was initially elevated secondary to pain. Repeat blood pressure is 137/79. Chest x-ray reveals chronic changes only. No widened mediastinum. Lab work unremarkable including negative troponin. Patient now describes his pain more like having spasms in his arm. He will be written for naproxen along with Flexeril. Return instructions are provided. Discharge Plan Triage Chief Complaint: Other, Pain/Inj ED Provider: Lorena Smith Dx/Rx/DC Orders Clinical Impression: Arm pain, right Instructions: ED Myalgias, ED Muscle Strain, Extremity Prescriptions: New naproxen [Naprosyn] 500 mg tablet 500 mg PO BID PRN (Reason: pain) Qty: 20 RF: 0 cyclobenzaprine 10 mg tablet 10 mg PO BID PRN (Reason: muscle spasm) Qty: 10 RF: 0 No Action lisinopril 20 MG tablet 10 mg PO DAILY RF: 0 ergocalciferol (vitamin D2) 50,000 UNIT capsule 50,000 unit PO Q7D RF: 0 Advair HFA 230-21 mcg/actuation Hfa Aerosol Inhaler 2 puff INHALATION BID RF: 0 albuterol sulfate 90 mcg/actuation Hfa Aerosol Inhaler 2 puff INHALATION Q6H PRN (Reason: SOB) RF: 0 prednisone 20 mg tablet 20 mg PO BID Qty: 6 RF: 0 lorazepam [Ativan] 1 mg tablet 1 mg PO TID PRN (Reason: anxiety) Qty: 10 RF: 0 Primary Care Provider: Remberto Woodruff NP Referrals: Ranjan,Remberto RADIATOR CLEANER, RADIATOR CLEANER-C [Primary Care Provider] - 1 Week if not improving Disposition Disposition: Home, Self Care
[2021-10-14 04:32] LABS: Absolute Lymphocyte Count 1.85 X10^3/uL (0.83-4.51); Absolute Neutrophil Count 1.9 X10^3/uL (2.0-7.7); Basophil# 0.03 X10^3/uL; Basophil% 0.7 % (0-1); Eosinophil# 0.27 X10^3/uL; Hematocrit 42.3 % (40-54); Hemoglobin 14.8 g/dL (13.0-16.5); Lymphocyte # 1.85 X10^3/ul (0.83-4.51); Lymphocyte % 41.2 % (19-41); Mean Corpuscular Hgb 29.5 pg (27.0-32.0); Mean Corpuscular Volume 84.3 fL (80-94); Mean Platelet Vol. 9.5 fl (6.2-12.0); Monocyte# 0.44 X10^3/uL; Monocyte% 9.8 % (0-10); NRBC Flagged by Analyzer 0 % (0-5); Neutrophil # 1.89 X10^3/uL (2.7-7.7); Neutrophil % 42.1 % (47-70); Platelet Count 183 K/mm3 (150-450); RBC Distribution Width CV 13.5 % (11.6-14.6); RBC Distribution Width SD 41.8 fl (35.1-43.9); Red Blood Count 5.02 M/mm3 (4.6-6.2); White Blood Count 4.5 K/mm3 (4.4-11.0)
[2021-10-14] MEDS: Morphine 4 MG/ML Syringe IV (04:34)
[2021-10-14] MEDS: Ondansetron 4 MG/2 ML Vial IV (04:35)
[2021-10-14 04:47] LABS: Erythrocyte Sedimentation Rate 7 mm/hr (0-20)
[2021-10-14 04:50] LABS: Anion Gap 7 (5-15); BUN 21 mg/dL (7-18); BUN/Creat Ratio 18.6 RATIO (10-20); CRP 4.12 mg/L (0.0-3.0); Calcium,Total 8.2 mg/dL (8.5-10.1); Chloride 112 mmol/L (98-107); Creatinine, Serum 1.13 mg/dL (0.70-1.30); EST Glomerular Filtration Rate 77 mL/min (>60); Est Glom Filt Rate - Afr Amer 93 mL/min (>60); Estimated Creatinine Clearance 67.78 ml/min; Glucose 180 mg/dL (74-106); Potassium 3.7 mmol/L (3.5-5.1); Sodium Level 141 mmol/L (136-145); Troponin-I HS 12 pg/mL (3.0-78.0)
[2021-10-14 05:58] VITALS: BP 137/79; PULSE 84; RESP 17; O2SAT 97
== END 2021-10-14 05:58 | disposition home or self-care (01) ==
PROVIDERS: Emergency Provider Emergency Medicine; PCP Nurse Practitioner Family
DX: M79.601 Pain in right arm (principal); I10 Essential (primary) hypertension; F41.9 Anxiety disorder, unspecified; Z79.899 Other long term (current) drug therapy
CPT/HCPCS: 71045; 80048; 84484; 85025; 85652; 86140; 93005; 96374; 96375; 99283; J2405

== ENCOUNTER 2022-03-11 08:55 | Emergency (ER) | payer BC, SELFPAY ==
[2022-03-11 08:56] VITALS: BP 188/125; PULSE 108; RESP 16; TEMP 36.4; O2SAT 96; BMI 33.1
[2022-03-11] MEDS: Lidocaine 1% (20 ml mdv) 20 ML Vial INFILT (09:22)
--- NOTE | 2022-03-11 09:23 | EX.ED.DYSGE1 ---
HPI History of Present Illness Chief Complaint: Abscess Informant: patient Narrative Narrative: 41-year-old male presenting to the emergency department with abscess in the left axilla. Patient states it started off looking like an ingrown hair/pustule. He tried to squeeze it and it continues to grow and is now more painful. Has never had anything like this before. No fevers. [facility] Medical History Anxiety Hypertension Kidney stones Home Medications ergocalciferol (vitamin D2) 50,000 unit PO Q7D 10/31/20 [History Last Taken Unknown] lisinopril 10 mg PO DAILY 10/31/20 [History Last Taken Unknown] albuterol sulfate 2 puff INHALATION Q6H PRN 04/08/21 [History Last Taken Unknown] fluticasone propion-salmeterol [Advair HFA] 2 puff INHALATION BID 04/08/21 [History Last Taken Unknown] lorazepam [Ativan] 1 mg PO TID PRN #10 tab 06/14/21 [Rx Last Taken Unknown] prednisone 20 mg PO BID #6 tab 06/14/21 [Rx Last Taken Unknown] cyclobenzaprine 10 mg PO BID PRN #10 tab 10/14/21 [Rx Last Taken Unknown] naproxen [Naprosyn] 500 mg PO BID PRN #20 tab 10/14/21 [Rx Last Taken Unknown] cephalexin 500 mg PO Q6 #40 capsule 03/11/22 [Rx Last Taken Unknown] hydrocodone-acetaminophen 1 tab PO Q6H PRN PRN 3 Days #12 tablet 03/11/22 [Rx Last Taken Unknown] sulfamethoxazole-trimethoprim 1 tab PO BID #20 tablet 03/11/22 [Rx Last Taken Unknown] Allergy/AdvReac Type Severity Reaction Status Date / Time oxycodone HCl [From Percocet] AdvReac Vomiting Verified 03/11/22 08:56 Social History (Updated 03/11/22 @ 09:[address] Devon Benavides DO) current gender identity: male Smoking Status: Never smoker substance use type: does not use ROS ROS ED Constitutional Constitutional ED: Denies chills or weight loss Eyes Eyes: Denies change in vision or diplopia ENT ENT ED: Denies ear pain, rhinorrhea or sore throat Cardiovascular Cardiovascular: Denies chest pain, orthopnea, palpitations or racing heartbeat Respiratory/Chest Respiratory/Chest: Denies cough, dyspnea or orthopnea Gastrointestinal Gastrointestinal: Denies abdominal pain, diarrhea, nausea or vomiting Genitourinary Genitourinary ED: Denies dysuria, hematuria or urinary frequency Musculoskeletal Musculoskeletal: Denies arthralgias or myalgias Integumentary Reports abscess; Denies rash Neurologic Neurologic: Denies headache(s) or weakness Psychiatric Psychiatric: Denies anxiety, depression, suicidal ideation or suicidal thoughts Endocrine Endocrinology: Denies polydipsia, polyphagia or polyuria Allergic/Immunologic Allergic/Immunologic ED: Denies mouth swelling, tongue swelling or urticaria EXAM Physical Exam Const Vital Signs: 03/11/22 08:56 Temperature 97.6 F L Temperature Source Temporal Pulse Rate 108 H Respiratory Rate 16 Blood Pressure 188/125 H Blood Pressure Mean 146 Pulse Ox 96 Oxygen Delivery Method Room Air Positive well nourished and well developed General Appearance ED: well developed HEENT Reports normocephalic, head/scalp atraumatic, TM's clear and moist mucous membranes Negative for trauma Tympanic Membrane ED: Yes TM's clear Eyes PERRL and EOMs intact bilaterally Neck no lymphadenopathy, supple and no JVD Resp normal respiratory effort and clear to auscultation bilaterally Cardio regular rate, regular rhythm and no murmurs GI normal to inspection, nondistended, normoactive bowel sounds and non-tender Palpation: soft Back/Spine no CVA tenderness and normal ROM Extremity normal to inspection General Extremety ED: Negative for edema General Extremity: Negative for edema Neuro oriented x3 and CN's II-XII intact bilaterally Sensorium / Orientation: alert Motor Exam: strength 5/5 throughout Psych mental status grossly normal Mood & Affect: Negative for depressed or tearful Skin no rashes or lesions noted Skin Narrative: Left axilla demonstrates a 2 cm area of fluctuance consistent with abscess. Due to birthmark surrounding erythema is limited but patient notes his birthmark does seem darker MDM MDM MDM Narrative Medical decision making narrative: Patient provided informed oral consent for incision and drainage. The patient's axilla was washed with Betadine and allowed to dry. 1% lidocaine was used to anesthetize the skin. A cruciate incision was made. Large amount of pus was removed. Wound was probed for loculations and further pus was expressed. It was irrigated and then packed with approximately 1 foot of quarter inch packing. Patient will be placed on Keflex and Bactrim. He is to return if worsening or concern pull the packing in 3 days Discharge Plan Triage Chief Complaint: Abscess ED Provider: Devon Benavides Dx/Rx/DC Orders Clinical Impression: Cutaneous abscess of axilla Instructions: ED Abscess Incision And Drainage Prescriptions: New hydrocodone-acetaminophen [hydrocodone-acetaminophen] 1 TABLET tablet 1 tab PO Q6H PRN PRN (Reason: Pain) 3 Days Qty: 12 RF: 0 cephalexin [cephalexin] 500 MG capsule 500 mg PO Q6 Qty: 40 RF: 0 sulfamethoxazole-trimethoprim [sulfamethoxazole-trimethoprim] 1 TABLET tablet 1 tab PO BID Qty: 20 RF: 0 No Action lisinopril 20 MG tablet 10 mg PO DAILY RF: 0 ergocalciferol (vitamin D2) 50,000 UNIT capsule 50,000 unit PO Q7D RF: 0 Advair HFA 230-21 mcg/actuation Hfa Aerosol Inhaler 2 puff INHALATION BID RF: 0 albuterol sulfate 90 mcg/actuation Hfa Aerosol Inhaler 2 puff INHALATION Q6H PRN (Reason: SOB) RF: 0 prednisone 20 mg tablet 20 mg PO BID Qty: 6 RF: 0 lorazepam [Ativan] 1 mg tablet 1 mg PO TID PRN (Reason: anxiety) Qty: 10 RF: 0 naproxen [Naprosyn] 500 mg tablet 500 mg PO BID PRN (Reason: pain) Qty: 20 RF: 0 cyclobenzaprine 10 mg tablet 10 mg PO BID PRN (Reason: muscle spasm) Qty: 10 RF: 0 Primary Care Provider: Remberto Woodruff NP Referrals: Remberto Woodruff NP, OUTPATIENT PSYCHIATRIST-C [Primary Care Provider] - As Needed Activity Restrictions/Additional Instructions: Please remove the packing in 3 days while you are in the shower Disposition Disposition: Home, Self Care
[2022-03-11 09:49] VITALS: BP 156/90; PULSE 78; RESP 18; O2SAT 97
== END 2022-03-11 09:50 | disposition home or self-care (01) ==
LOC: ED 09:30
PROVIDERS: Emergency Provider Emergency Medicine; PCP Nurse Practitioner Family; Visit Provider Emergency Medicine
DX: L02.412 Cutaneous abscess of left axilla (principal); I10 Essential (primary) hypertension; F41.9 Anxiety disorder, unspecified; Z79.899 Other long term (current) drug therapy
CPT/HCPCS: 10061; 10060; 99282

== ENCOUNTER 2024-02-03 23:12 | Emergency (ER) | payer BC, SELFPAY ==
[2024-02-03 23:15] VITALS: BP 144/107; PULSE 100; RESP 18; TEMP 36.5; O2SAT 97; BMI 33.3
[2024-02-03 23:56] LABS: Bacteria 0 SEEN /hpf (None Seen); Mucous, Urine 0 SEEN /hpf (<or=2+); Squamous Epithelial Cells - UA 0 SEEN /hpf (0-5); White Blood Cells 0 SEEN /hpf (0-5)
[2024-02-03 23:57] LABS: Absolute Lymphocyte Count 1.83 X10^3/uL (0.83-4.51); Absolute Neutrophil Count 4.3 X10^3/uL (2.0-7.7); Basophil# 0.03 X10^3/uL; Basophil% 0.4 % (0-1); Eosinophil# 0.13 X10^3/uL; Eosinophils% 1.9 % (0-5); Hematocrit 44.5 % (40-54); Hemoglobin 15.4 g/dL (13.0-16.5); Lymphocyte # 1.83 X10^3/ul (0.83-4.51); Lymphocyte % 27.3 % (19-41); Mean Corp Hgb Conc 34.6 g/dL (32-36); Mean Corpuscular Hgb 29.6 pg (27.0-32.0); Mean Corpuscular Volume 85.6 fL (80-94); Mean Platelet Vol. 9.1 fl (6.2-12.0); Monocyte# 0.38 X10^3/uL; Monocyte% 5.7 % (0-10); NRBC Flagged by Analyzer 0 % (0-5); Neutrophil # 4.32 X10^3/uL (2.7-7.7); Neutrophil % 64.4 % (47-70); Platelet Count 233 K/mm3 (150-450); RBC Distribution Width CV 13.3 % (11.6-14.6); RBC Distribution Width SD 41.6 fl (35.1-43.9); White Blood Count 6.7 K/mm3 (4.4-11.0)
[2024-02-04 00:03] LABS: Color, Urine Yellow (Yellow); Glucose, Dipstick Normal (Normal); Ketone-Dipstick Negative (Negative); Leukocyte Esterase-Dipstick Negative /ul (Negative); Nitrite-Dipstick Negative (Negative); Occult Blood-Urine 250 /ul (Negative); Protein-Dipstick 100 mg/dl (Negative); Specific Gravity, Urine 1.015 (1.002-1.030); Urine Bilirubin Dipstick Negative (Negative); Urine Clarity Cloudy (Clear); Urine Urobilinogen Normal (Normal); Urine pH 6.5 (5.0 - 8.0)
[2024-02-04 00:08] LABS: Prothrombin Time (Protime)PT. 13.2 SECONDS (11.7-14.9)
[2024-02-04 00:09] LABS: Partial Thromboplast Time 33.3 Seconds (24.1-36.2)
--- NOTE | 2024-02-04 00:09 | EX.ED.DYSGE1 ---
HPI History of Present Illness Chief Complaint: Complaint Informant: patient Narrative Narrative: Patient is a 43-year-old male with past medical history of anxiety hypertension and previous kidney stone. He states that he noticed this morning that when he urinated it looked dark/bloody in color. He states that he began drinking lots of water to help flush his system. He states that he has done this but still had symptoms throughout the day. He does note that he has pain in the lower abdomen as well. He states he does not have a history of bleeding disorder nor does he take blood thinners. He denies any recent trauma to the genital region or the back. He states he does have a history of kidney stones but this feels somewhat different and therefore comes in for evaluation. PFSH PFS Medical History Anxiety Hypertension Kidney stones Home Medications albuterol sulfate 90 mcg/actuation aerosol inhaler 2 puff inhalation Q4H PRN SOB 04/08/21 [History Last Taken Unknown] amlodipine 5 mg tablet 5 mg PO DAILY 02/03/24 [History Last Taken Unknown] fluticasone propionate 230 mcg-salmeterol 21 mcg/actuation HFA inhaler 2 puff inhalation BID 02/03/24 [History Last Taken Unknown] losartan 50 mg tablet 50 mg PO DAILY 02/03/24 [History Last Taken Unknown] Allergy/AdvReac Type Severity Reaction Status Date / Time oxycodone HCl [From Percocet] AdvReac Vomiting Verified 02/03/24 23:14 Social History Smoking Status: Never smoker substance use type: does not use ROS ROS ED Constitutional Constitutional ED: Denies chills or fever(s) ENT ENT ED: Denies sore throat Cardiovascular Cardiovascular: Denies chest pain, palpitations or racing heartbeat Respiratory/Chest Respiratory/Chest: Denies cough or dyspnea Gastrointestinal Gastrointestinal: Reports abdominal pain; Denies diarrhea, melena, nausea or vomiting Genitourinary Genitourinary ED: Reports hematuria; Denies dysuria or urinary frequency Musculoskeletal Musculoskeletal: Denies back pain or myalgias Integumentary Denies rash Neurologic Neurologic: Denies headache(s) Hematologic/Lymphatic Hematologic/Lymphatic: Denies easy bleeding or easy bruising EXAM Physical Exam Const Vital Signs: 02/03/24 23:15 Temperature 97.7 F L Temperature Source Temporal Pulse Rate 100 Respiratory Rate 18 Blood Pressure 144/107 H Blood Pressure Mean 119 Pulse Ox 97 Oxygen Delivery Method Room Air Positive well nourished and well developed General Appearance ED: well developed; Negative for pallor HEENT HEENT Narrative: Normocephalic atraumatic Eyes PERRL and EOMs intact bilaterally General Eye ED: Negative for pale conjunctiva or scleral icterus Neck supple Resp normal respiratory effort and clear to auscultation bilaterally Cardio regular rate and regular rhythm Rate: other Other Details: Heart is regular rate and rhythm without murmurs rubs or gallops Radial and carotid pulses are equal and symmetric GI non-distended and no masses GI Narrative: Abdomen is soft and nondistended with normal active bowel sounds. No organomegaly noted to suggest urinary retention. There is mild pain with palpation in the suprapubic and right lower quadrant region without voluntary guarding or rigidity or pulsatile mass Auscultation: normoactive bowel sounds Palpation: soft Narrative: Normal uncircumcised male without blood or discharge from the urethral meatus. No testicular masses noted No overlying soft tissue changes to suggest Venus's gangrene Back/Spine no CVA tenderness Extremity normal to inspection Neuro oriented x3, CN's II-XII intact bilaterally and no sensory deficits noted Sensorium / Orientation: alert Motor Exam: strength 5/5 throughout Psych mental status grossly normal Skin no rashes or lesions noted, no wounds and skin turgor normal General Skin Exam: Negative for jaundice or pallor MDM MDM MDM Narrative Medical decision making narrative: Patient arrived to the ER hypertensive otherwise with stable vitals and does have past medical history of this so hypertension was not overtly concerning. With pain in the suprapubic region and right lower quadrant and report of hematuria there is concern that he has a kidney stone or potential UTI/pyelonephritis or potential bladder mass as a cause of his symptoms. Secondary to this basic blood work was obtained with a noncontrast CT scan. Patient's hemoglobin and hematocrit are normal going against need for acute blood transfusion or acute blood loss anemia. Kidney function is normal going against acute kidney injury and platelets and bleeding times are also normal. Urine sample confirms blood but no sign of infection. CT scan did not show any obvious ureterolithiasis or bladder mass. I did talk about a mass along the left kidney and recommends further evaluation with MRI or dedicated CT scan with renal protocol. At this time the patient is still able to urinate he does not have infection indicating UTI/pyelonephritis/hemorrhagic cystitis as a cause of his symptoms. Hematuria is not consistent with acute appendicitis and radiologist notes the appendix appears normal. At this time as he does not have changes to suggest urosepsis or acute kidney injury and he does not have acute blood loss anemia or need for transfusion I do not feel there is need for further workup. We discussed placing a catheter and performing bladder irrigation but the patient is not having urinary retention from the hematuria and he is not on a blood thinner and therefore we will hold off on bladder irrigation at this time and advised him to follow-up with urology to discuss further testing. Patient agrees with this plan of care and states he will return to the ER symptoms worsen History & Record Review Discussion w/independent historian: Patient Lab Data Attestation: I reviewed the patient's lab results. Labs: Laboratory Results - last 24 hr 02/03/24 02/03/24 23:48 23:50 WBC 6.7 RBC 5.20 Hgb 15.4 Hct 44.5 MCV 85.6 MCH 29.6 MCHC 34.6 RDW Std Deviation 41.6 RDW Coeff of Molly 13.3 Plt Count 233 MPV 9.1 Immature Gran % (Auto) 0.300 Neut % (Auto) 64.4 Lymph % (Auto) 27.3 [place] % (Auto) 5.7 Eos % (Auto) 1.9 Baso % (Auto) 0.4 Absolute Neuts (auto) 4.3 Absolute Lymphs (auto) 1.83 Nucleated RBC % 0 PT 13.2 INR 1.0 APTT 33.3 Sodium 138 Potassium 4.0 Chloride 106 Carbon Dioxide 26.0 Anion Gap 6 BUN 14 Creatinine 1.07 Estim Creat Clear Calc 84.63 Est GFR (MDRD) Af Amer 98 Est GFR (MDRD) Non-Af 81 BUN/Creatinine Ratio 13.1 Glucose 119 H Calcium 9.1 Urine Color Yellow Urine Clarity Cloudy Urine pH 6.5 Ur Specific [place] 1.015 Urine Protein 100 H Urine Glucose (UA) Normal Urine Ketones Negative Urine Occult Blood 250 H Urine Nitrite Negative Urine Bilirubin Negative Urine Urobilinogen Normal Ur Leukocyte Esterase Negative Urine RBC > 100 SEEN Urine WBC 0 SEEN Ur Squamous Epith Cells 0 SEEN Urine Bacteria 0 SEEN Urine Mucus 0 SEEN Radiography Diagnostic Testing: Clinical Impression(s) from Imaging Studies Abdomen/Pelvis CT 02/04/24 23:37 IMPRESSION: 1. Heterogeneous lobulated contour of the inferior pole of the left kidney. Recommend follow-up with MRI versus CT with dedicated renal protocol to exclude neoplasm. 2. Nonobstructing left renal stones. No ureteral stone or hydronephrosis. Electronically Signed: Nayan Roberts DO at 0:39 EDT , Discharge Plan Triage Chief Complaint: Complaint Other Complaint: Abd Pain ED Provider: Blake Cheema Dx/Rx/DC Orders Clinical Impression: Hematuria, Hypertension Instructions: Hematuria: Possible Causes, ED Hematuria Prescriptions: No Action albuterol sulfate 90 mcg/actuation Hfa Aerosol Inhaler 2 puff INHALATION Q4H PRN (Reason: SOB) amlodipine 5 mg tablet 5 mg PO DAILY losartan 50 mg tablet 50 mg PO DAILY fluticasone propion-salmeterol 230-21 mcg/actuation HFA aerosol inhaler 2 puff inhalation BID Primary Care Provider: Remberto Woodruff NP Referrals: Alejo Kaur MD [Med Staff - Active Staff] - Remberto Woodruff NP, REACHER-C [Primary Care Provider] - Activity Restrictions/Additional Instructions: Please follow-up with urology to discuss further testing for potential causes of the blood in your urine and return to the ER should you have any further concerns or worsening of symptoms. Disposition Disposition: Home, Self Care
[2024-02-04 00:12] LABS: Anion Gap 6 (5-15); BUN 14 mg/dL (7-18); BUN/Creat Ratio 13.1 RATIO (10-20); Calcium,Total 9.1 mg/dL (8.5-10.1); Chloride 106 mmol/L (98-107); Creatinine, Serum 1.07 mg/dL (0.70-1.30); EST Glomerular Filtration Rate 81 mL/min (>60); Est Glom Filt Rate - Afr Amer 98 mL/min (>60); Estimated Creatinine Clearance 84.63 ml/min; Glucose 119 mg/dL (74-106); Sodium Level 138 mmol/L (136-145)
[2024-02-04 00:12] LABS: Red Blood Cells-Urine > 100 SEEN /hpf (0-5)
[2024-02-04] MEDS: 0.9% Normal Saline (1000mL) 1,000 ML 999 ML IV (00:20)
[2024-02-04 01:13] VITALS: BP 152/62; PULSE 68; RESP 17; O2SAT 98
[2024-02-04 01:17] VITALS: BP 152/62; PULSE 68; RESP 17; TEMP 36.4; O2SAT 98
--- NOTE | 2024-02-04 23:37 | CT_ITS ---
INDICATION: Hematuria EXAMINATION: CT Abdomen And Pelvis W/O Contrast Injection TECHNIQUE: Helically acquired images were obtained of the abdomen and pelvis with sagittal and coronal reconstructed images. Individualized dose optimization techniques were used for this CT. IV contrast dosage and agent: None. Oral contrast: None. COMPARISON: None. FINDINGS: VESSELS: No abdominal aortic aneurysm. LIVER: No intrahepatic or extrahepatic biliary duct dilation. GALLBLADDER: No calcified stones. No evidence of cholecystitis. PANCREAS: No evidence of a mass. No evidence of pancreatitis. SPLEEN: Normal. ADRENAL GLANDS: Normal. KIDNEYS AND URETERS: Nonobstructing left renal stones. Heterogeneous lobulated contour of the inferior pole of the left kidney. No ureteral stone or right renal stone. No hydronephrosis or hydroureter. No significant asymmetric perinephric stranding. URINARY BLADDER: Unremarkable. BOWEL: No evidence of diverticulosis or diverticulitis. Appendix appears normal. No evidence of bowel obstruction. REPRODUCTIVE ORGANS: Unremarkable. PERITONEUM: No intraabdominal free fluid or free air. LYMPH NODES: No pathologically enlarged mesenteric or retroperitoneal lymph nodes. ABDOMINAL WALL: No abdominal or pelvic wall hernia. BONES: No acute abnormality. LOWER CHEST: Visualized lung bases are unremarkable. CT/Abdomen/Pelvis without Cont IMPRESSION: 1. Heterogeneous lobulated contour of the inferior pole of the left kidney. Recommend follow-up with MRI versus CT with dedicated renal protocol to exclude neoplasm. 2. Nonobstructing left renal stones. No ureteral stone or hydronephrosis. Electronically Signed: Nayan Roberts DO at 0:39 EDT ,
== END 2024-02-04 01:18 | disposition home or self-care (01) ==
PROVIDERS: Emergency Provider Emergency Medicine; PCP Nurse Practitioner Family; Visit Provider Emergency Medicine
DX: R31.9 Hematuria, unspecified (principal); I10 Essential (primary) hypertension; Z79.899 Other long term (current) drug therapy; Z87.442 Personal history of urinary calculi
CPT/HCPCS: 74176; 80048; 81001; 85025; 85610; 85730; 96360; 99283; J7030; A4216

== ENCOUNTER 2024-02-15 21:11 | Emergency (ER) | payer BC, SELFPAY ==
[2024-02-15 21:12] VITALS: BP 191/107; PULSE 114; PULSE 116; RESP 20; TEMP 36.3; O2SAT 98; BMI 32.0
[2024-02-15 21:14] VITALS: BP 191/107; PULSE 117; RESP 20; TEMP 36.3; O2SAT 98
--- NOTE | 2024-02-15 21:21 | EDS_ITS ---
HPI History of Present Illness Chief Complaint: Back Narrative Narrative: 43-year-old male past medical history of kidney stones states that he had a iodine scan last week sometime. He presents with urinary retention that began earlier today. He states that 2 hours ago he felt like he had to urinate but cannot. He is not having any problems with bowel movements. No fevers or chills, no nausea or vomiting. He states that he has a sensation that he has to urinate, and has been drinking plenty of fluids, but when he tries to urinate, he will only get a small dribble. [facility] Medical History Anxiety Hypertension Kidney stones Home Medications albuterol sulfate 90 mcg/actuation aerosol inhaler 2 puff inhalation Q4H PRN SOB 04/08/21 [History Last Taken Unknown] amlodipine 5 mg tablet 5 mg PO DAILY 02/03/24 [History Last Taken Unknown] fluticasone propionate 230 mcg-salmeterol 21 mcg/actuation HFA inhaler 2 puff inhalation BID 02/03/24 [History Last Taken Unknown] losartan 50 mg tablet 50 mg PO DAILY 02/03/24 [History Last Taken Unknown] Allergy/AdvReac Type Severity Reaction Status Date / Time lisinopril Allergy Mild Rash Verified 02/15/24 21:12 oxycodone HCl [From Percocet] AdvReac Vomiting Verified 02/03/24 23:14 Social History Smoking Status: Never smoker substance use type: does not use ROS ROS ED ROS Narrative Constitutional: No fever, no chills. HEENT: No sore throat. No neck pain. No loss of vision. No rhinorrhea. Cardiovascular: No chest pain. No palpitations. No pedal edema. Respiratory: No cough, no shortness of breath. Abdominal: Suprapubic abdominal pain. No nausea. No vomiting. Genitourinary: Positive urinary retention Musculoskeletal: No myalgias. No arthralgias. Neurologic: No headaches. No dizziness. No lightheadedness. Skin: No rash. No change in color. Psychiatric: No depression. No anxiety. EXAM Physical Exam Narrative Exam Narrative: Afebrile. Vital signs noted. HEENT: Normocephalic. Atraumatic. PERRL, EOMI. Neck soft and supple. No point tenderness or step off. Cardiovascular: Positive tachycardia no murmurs, rubs, or gallops appreciated. Respiratory: No tachypnea. Lungs clear to auscultation bilaterally. Gastrointestinal: Abdomen soft, suprapubic tenderness with bladder distention. With normoactive bowel sounds. No rebound or guarding. Neurological: Awake. Alert. Nonfocal, nonlateralizing. Skin: Port wine birthmarks, otherwise normal color. No pallor. Musculoskeletal: No pedal edema. Full range of motion extremities. Const Vital Signs: 02/15/24 21:12 02/15/24 21:12 02/15/24 21:14 Temperature 97.4 F L 97.4 F L 97.4 F L Temperature Source Temporal Temporal Temporal Pulse Rate 114 H 116 H 117 H Respiratory Rate 20 H 20 H 20 H Blood Pressure 191/107 H 191/107 H 191/107 H Blood Pressure Mean 135 135 135 Pulse Ox 98 98 98 Oxygen Delivery Method Room Air Room Air Room Air 02/15/24 22:14 02/15/24 23:11 02/15/24 23:00 Temperature 98.1 F 98.2 F Temperature Source Oral Oral Pulse Rate 102 H 102 H 104 H Respiratory Rate 16 16 16 Blood Pressure 155/107 H 157/113 H 157/113 H Blood Pressure Mean 123 127 127 Pulse Ox 97 96 96 Oxygen Delivery Method Room Air Room Air Room Air MDM MDM MDM Narrative Medical decision making narrative: Concern is for urinary retention possibly secondary to bladder outlet obstruction including enlarged prostate. Bladder scan will be performed and Jimenez catheter inserted by RN. Bladder scan was performed by RN and she states that there was nearly 700 mL of urine in the bladder. Jimenez catheter was inserted and he passed clots and bloody urine. This was sent for urinalysis and urinalysis reviewed, they are greater than 100 RBCs with 0-5 WBCs, 2+ urine bacteria and 250 occult blood. I do not think he necessarily has a urinary tract infection or hemorrhagic cystitis given his low amount of WBCs. After Jimenez catheter had been placed, patient started having the sensation that he was obstructed again, with suprapubic discomfort. RN noted leakage of urine around the Jimenez catheter. They irrigated his Jimenez catheter and he passed large clots. His Jimenez catheter was exchanged for three-way and his bladder irrigated. They removed a large amount of clot as well. Upon repeat examination at approximately 11:30 PM, his urine is not as light and he is still undergoing irrigation. I do feel that laboratory work should be added to check his creatinine and his blood count and platelet count. He does not take any blood thinners so I am unsure as to the cause of his hematuria/gross hematuria. CT imaging of the abdomen pelvis will be obtained without contrast to look for bladder mass as well. As his urine has not completely cleared, and based on other findings, he may require transfer to [facility] where his urologist practices. In discussion with the RN, he has been irrigated with 1.4 L, and is still passing clots and has continued hematuria that has not lightened up to a pink color. I discussed the patient with the [facility] transfer line. I then discussed the patient with Dr. Pruitt with hospitalist medicine at [facility]. She has accepted him in transfer, but would like the lab results and CT results communicated to her. He will be transferred in stable condition. History & Record Review Discussion w/independent historian: Patient Lab Data Attestation: I reviewed the patient's lab results. Labs: Laboratory Results - last 24 hr 02/15/24 22:00 Urine Color Red Urine Clarity Cloudy Urine pH 6.5 Ur Specific [place] 1.010 Urine Protein 100 H Urine Glucose (UA) 250 H Urine Ketones Negative Urine Occult Blood 250 H Urine Nitrite Negative Urine Bilirubin Negative Urine Urobilinogen Normal Ur Leukocyte Esterase 25 H Urine RBC > 100 SEEN Urine WBC 0-5 SEEN Ur Squamous Epith Cells 0 SEEN Urine Bacteria 2+ Urine Mucus 0 SEEN Discharge Plan Triage Chief Complaint: Back ED Provider: Marty Kiser Dx/Rx/DC Orders Clinical Impression: Hematuria, Acute urinary retention Prescriptions: No Action albuterol sulfate 90 mcg/actuation Hfa Aerosol Inhaler 2 puff INHALATION Q4H PRN (Reason: SOB) amlodipine 5 mg tablet 5 mg PO DAILY losartan 50 mg tablet 50 mg PO DAILY fluticasone propion-salmeterol 230-21 mcg/actuation HFA aerosol inhaler 2 puff inhalation BID Primary Care Provider: Remberto Woodruff NP Referrals: Remberto Woodruff NP, COMPUTER TEACHER-C [Primary Care Provider] - Disposition Disposition: Acute Care Hospital Discharge Location: [facility]
[2024-02-15 22:14] VITALS: BP 155/107; PULSE 102; RESP 16; TEMP 36.7; O2SAT 97
[2024-02-15 22:21] LABS: Mucous, Urine 0 SEEN /hpf (<or=2+); Squamous Epithelial Cells - UA 0 SEEN /hpf (0-5)
[2024-02-15 22:24] LABS: Color, Urine Red (Yellow); Glucose, Dipstick 250 mg/dl (Normal); Ketone-Dipstick Negative (Negative); Leukocyte Esterase-Dipstick 25 /ul (Negative); Nitrite-Dipstick Negative (Negative); Occult Blood-Urine 250 /ul (Negative); Protein-Dipstick 100 mg/dl (Negative); Urine Bilirubin Dipstick Negative (Negative); Urine Clarity Cloudy (Clear); Urine Urobilinogen Normal (Normal); Urine pH 6.5 (5.0 - 8.0)
[2024-02-15 22:49] LABS: Bacteria 2+ /hpf (None Seen); Red Blood Cells-Urine > 100 SEEN /hpf (0-5); White Blood Cells 0-5 SEEN /hpf (0-5)
[2024-02-15 23:00] VITALS: BP 157/113; PULSE 104; RESP 16; TEMP 36.8; O2SAT 96
[2024-02-15 23:11] VITALS: BP 157/113; PULSE 102; RESP 16; O2SAT 96
[2024-02-16] VITALS (7 sets, daily range): BP systolic 123–158; BP diastolic 91–111; PULSE 97–110; RESP 16–18; TEMP 36.7–36.8; O2SAT 95–98
[2024-02-16 00:44] LABS: Absolute Lymphocyte Count 1.78 X10^3/uL (0.83-4.51); Basophil# 0.02 X10^3/uL; Basophil% 0.3 % (0-1); Eosinophil# 0.13 X10^3/uL; Eosinophils% 1.8 % (0-5); Hematocrit 44.1 % (40-54); Hemoglobin 14.9 g/dL (13.0-16.5); Lymphocyte # 1.78 X10^3/ul (0.83-4.51); Lymphocyte % 24.2 % (19-41); Mean Corp Hgb Conc 33.8 g/dL (32-36); Mean Corpuscular Hgb 28.9 pg (27.0-32.0); Mean Corpuscular Volume 85.5 fL (80-94); Mean Platelet Vol. 9.1 fl (6.2-12.0); Monocyte# 0.41 X10^3/uL; Monocyte% 5.6 % (0-10); NRBC Flagged by Analyzer 0 % (0-5); Neutrophil # 4.99 X10^3/uL (2.7-7.7); Neutrophil % 67.6 % (47-70); Platelet Count 247 K/mm3 (150-450); RBC Distribution Width CV 13.2 % (11.6-14.6); RBC Distribution Width SD 41.3 fl (35.1-43.9); Red Blood Count 5.16 M/mm3 (4.6-6.2); White Blood Count 7.4 K/mm3 (4.4-11.0)
[2024-02-16 00:53] LABS: International Normalized Ratio 0.9; Prothrombin Time (Protime)PT. 12.4 SECONDS (11.7-14.9)
[2024-02-16 00:54] LABS: Partial Thromboplast Time 32.1 Seconds (24.1-36.2)
[2024-02-16 01:05] LABS: Anion Gap 6 (5-15); BUN 19 mg/dL (7-18); BUN/Creat Ratio 15.1 RATIO (10-20); Calcium,Total 9.1 mg/dL (8.5-10.1); Chloride 108 mmol/L (98-107); Creatinine, Serum 1.26 mg/dL (0.70-1.30); EST Glomerular Filtration Rate 67 mL/min (>60); Est Glom Filt Rate - Afr Amer 81 mL/min (>60); Glucose 197 mg/dL (74-106); Potassium 3.9 mmol/L (3.5-5.1); Sodium Level 138 mmol/L (136-145)
--- NOTE | 2024-02-16 04:00 | ED.RN ---
Report given to Cristiano HERR, questions/concerns answered
--- NOTE | 2024-02-16 23:33 | CT_ITS ---
INDICATION: hematuria EXAMINATION: CT ABDOMEN AND PELVIS WITHOUT CONTRAST - CT Abdomen And Pelvis W/O Contrast Injection TECHNIQUE: Helically acquired images were obtained of the abdomen and pelvis without oral or IV contrast. A radiation dose optimization technique was used for this scan. IV Contrast dosage and agent: None. Oral contrast: None. COMPARISON: 02/04/2024 FINDINGS: LOWER CHEST: Lung bases are clear. No cardiomegaly or pericardial effusion. LIVER: Homogeneous. No focal mass. GALLBLADDER AND BILIARY TREE: No calcified gallstones. No gallbladder distension or wall edema. No intra- or extrahepatic biliary ductal dilation. PANCREAS: No focal cystic or solid mass. SPLEEN: Normal size without focal cystic or solid mass. ADRENAL GLANDS: No nodules. KIDNEYS AND URETERS: Stable nonobstructing left renal calculus. Interval development of cortical nephrocalcinosis left kidney medially. Persistent lobular contour left lower pole with appearance of exophytic 1.8 cm solid lesion. Right hydroureteronephrosis without obstructing ureteral calculus. PERITONEUM: No ascites or free air. BOWEL: Normal appendix. No stomach or bowel distension. No focal inflammatory change. LYMPH NODES: Stable retroperitoneal adenopathy, largest periaortic node 2.1 cm. VESSELS: Aorta is non-dilated. URINARY BLADDER: Radiodense material in the bladder, not previously present. Jimenez catheter present but bladder partially distended with intraluminal air. REPRODUCTIVE ORGANS: No pelvic masses. ABDOMINAL WALL: No discrete abdominal or pelvic wall hernia. BONES: Unremarkable. CT/Abdomen/Pelvis without Cont IMPRESSION: Right hydroureteronephrosis without obstructing ureteral calculus. Probable bladder hematoma which is developed since the prior study. Interval development of left nephrocalcinosis which may be the result of sepsis, chronic glomerulonephritis, pyelonephritis, toxic agents. Stable retroperitoneal adenopathy. Stable abnormal contour lower pole left kidney again suspicious for exophytic lesion including renal cell carcinoma until proven otherwise. Electronically Signed: Gildardo Jain MD at 0:49 EDT Reading Location ID and State: [facility] / [place] Tel , Service support ,
== END 2024-02-16 03:50 | disposition short-term general hospital (02) ==
PROVIDERS: Emergency Provider Emergency Medicine; PCP Nurse Practitioner Family; Visit Provider Emergency Medicine
DX: R31.9 Hematuria, unspecified (principal); R33.9 Retention of urine, unspecified; Z79.51 Long term (current) use of inhaled steroids; Z79.899 Other long term (current) drug therapy
CPT/HCPCS: 51702; 74176; 80048; 81001; 85025; 85610; 85730; 99285; A4216

== ENCOUNTER 2024-04-09 08:11 | Emergency (ER) | payer BC, SELFPAY ==
[2024-04-09 08:11] VITALS: BP 148/92; PULSE 83; RESP 20; TEMP 35.7; O2SAT 97; BMI 32.0
--- NOTE | 2024-04-09 08:46 | CT_ITS ---
STUDY: CT ABDOMEN AND PELVIS WITH CONTRAST REASON FOR EXAM: Male, 43 years old. One week history of a status post left nephrectomy with the pain. RADIATION DOSAGE (If Supplied By Facility): CTDIvol = ( 12.94 ) mGy, DLP = ( 930.30 ) mGycm TECHNIQUE: Transaxial images were obtained from the dome of the diaphragm to the symphysis pubis without oral contrast. IV 75mL [id number]-[id number] was administered. Sagittal and coronal images were reconstructed. Individualized dose optimization techniques were used for this CT. COMPARISON: Comparison is made with prior study dated February 16, 2024 FINDINGS: The visualized lung bases are unremarkable. The visualized portions of the heart are within normal limits. There is decreased attenuation of the liver consistent with steatosis. Normal gallbladder and extrahepatic biliary system. Normal spleen. Normal pancreas. Normal bilateral adrenal glands. Normal right kidney. The patient is status post left nephrectomy. Postoperative soft tissue changes are seen in the left renal bed. Normal visualized stomach. Normal small intestine. Normal colon. The appendix is visualized and appears normal. Normal abdominal aorta. Normal inferior vena cava. There is borderline retroperitoneal lymphadenopathy with enlarged nodes no greater than 10mm in the short axis diameter. Normal urinary bladder. Central prostatic calcification. Increased markings are seen in the subcutaneous fat overlying the left anterior lateral abdominal wall most likely secondary to the recent operative procedure. Small bilateral inguinal hernias containing fat. Normal osseous structures. CT/Abdomen/Pelvis W IV Cont ONLY IMPRESSION: Status post left nephrectomy with postoperative soft tissue changes. No evidence of abscess or fluid collection. Electronically Signed: Art Joseph MD at 11:07 EDT ,
--- NOTE | 2024-04-09 08:48 | ED.VIS.GI ---
HPI HPI - GI History of Present Illness Chief Complaint: Abd Pain Narrative Narrative: 43-year-old male presenting with left-sided flank pain. Patient is status post left nephrectomy secondary to a renal mass on 03/23/2024. This was performed by Dr. Luna [facility]. Patient states he has had some mild pain since the surgery but about a week ago it started hurting worse. Initially he was on Ultram but when this ran out Dr. Luna recommended he try Tylenol and ibuprofen. He states that the Tylenol and ibuprofen is not working. His pain is increasing over the last 5 days. He tried to reach out to the surgeon and has an appointment on Sunday of this week but was told if the pain gets worse to come to the emergency room. Patient has not had any fevers at home. He has not had any nausea or vomiting. He states he is able to eat and drink and is having no problems with urination or defecation. He is having normal bowel movements. Patient states his only complaint is that he has increasing pain. PFSH PFSH Medical History Anxiety Kidney stones Hypertension Home Medications ?Medication ?Instructions ?Recorded ?Last Taken ?Type albuterol sulfate 90 mcg/actuation 2 puff inhalation Q4H PRN SOB 04/08/21 Unknown History aerosol inhaler amlodipine 5 mg tablet 5 mg PO DAILY 02/03/24 Unknown History fluticasone propionate 230 2 puff inhalation BID 02/03/24 Unknown History mcg-salmeterol 21 mcg/actuation HFA inhaler losartan 50 mg tablet 50 mg PO DAILY 02/03/24 Unknown History tramadol 50 mg tablet 50 mg PO Q6H PRN pain #12 tabs 04/09/24 Unknown Rx Allergy/AdvReac Type Severity Reaction Status Date / Time lisinopril Allergy Mild Rash Verified 02/15/24 21:12 oxycodone HCl (From Percocet) AdvReac Vomiting Verified 02/03/24 23:14 Social History Smoking Status: Never smoker substance use type: does not use ROS ROS ED Constitutional Constitutional ED: Denies chills, fever(s) or sweats Eyes Eyes: Denies blurry vision or change in vision ENT ENT ED: Denies ear pain or sore throat Cardiovascular Cardiovascular: Denies chest pain, palpitations or racing heartbeat Respiratory/Chest Respiratory/Chest: Denies cough, dyspnea or sputum Gastrointestinal Gastrointestinal: Reports abdominal pain; Denies constipation, diarrhea, nausea or vomiting Genitourinary Genitourinary ED: Denies dysuria, hematuria or urinary frequency Musculoskeletal Musculoskeletal: Denies arthralgias, myalgias or neck pain Integumentary Denies abscess, Abrasions or rash Neurologic Neurologic: Denies headache(s), paresthesias or weakness Psychiatric Psychiatric: Denies anxiety, depression, suicidal ideation or suicidal thoughts Endocrine Endocrinology: Denies polydipsia or polyuria EXAM Physical Exam Const Vital Signs: 04/09/24 08:11 Temperature 96.2 F L Temperature Source Temporal Pulse Rate 83 Respiratory Rate 20 H Blood Pressure 148/92 H Blood Pressure Mean 110 Pulse Ox 97 Oxygen Delivery Method Room Air Positive well nourished General Appearance ED: NAD; Negative for pallor HEENT Reports moist mucous membranes Eyes PERRL and EOMs intact bilaterally Resp normal respiratory effort Cardio regular rate and regular rhythm GI GI Narrative: Incision sites look clean, dry, intact. There are 3. 1 is on the left upper quadrant, one is on the left lower quadrant and there is one in between. These are horizontal. They are well-approximated with glue covering. Palpation: tender LLQ and LUQ Neuro CN's II-XII intact bilaterally Sensorium / Orientation: alert Motor Exam: strength 5/5 throughout Psych mental status grossly normal Skin General Skin Exam: Negative for jaundice or pallor MDM MDM MDM Narrative Medical decision making narrative: Patient presenting with left upper quadrant abdominal pain as well as left lower quadrant abdominal pain. Patient presenting with right flank pain. Differential includes colitis, diverticulitis, gastritis, pancreatitis, acute cholecystitis, constipation, appendicitis, UTI, pyelonephritis, calculi, obstruction, malignancy, dehydration, electrolyte abnormalities, postoperative infection, postoperative hematoma. CBC will be obtained to assess white blood cell count, hemoglobin, platelets. CMP to assess renal function, electrolytes, liver function, glucose. Lipase to assess for pancreatitis. Urinalysis to assess for UTI. Patient medicated with morphine, Zofran. Will obtain a CT of the abdomen pelvis with IV contrast. CBC shows a normal white blood cell count at 5.6. Hemoglobin 13.9. Platelets are normal at 232. Creatinine slightly elevated 1.5 today. Comparison made to most recent lab work at [facility] on 03/20/2024 and his creatinine is 1.36 at that point. Patient is given IV fluids. Electrolytes within normal limits. Total bilirubin is normal at 0.50. AST 64, ALT 93. Urinalysis positive for 500 of protein and 250 of glucose but no evidence of infection. There is small amount of occult blood. CT of the abdomen pelvis was obtained and shows no evidence of infection. There is some's postoperative soft tissue changes otherwise unremarkable. Patient was counseled on this. He states that Ultram helped him so I did give him a prescription for this for home. Recommend he follow-up with his surgeon. Impression: 1. Postoperative flank pain Lab Data Attestation: I reviewed the patient's lab results. Labs: Laboratory Results - last 24 hr 04/09/24 04/09/24 08:37 08:52 WBC 5.6 RBC 4.77 Hgb 13.9 Hct 40.1 MCV 84.1 MCH 29.1 MCHC 34.7 RDW Std Deviation 39.7 RDW Coeff of Molly 13.0 Plt Count 232 MPV 9.8 Immature Gran % (Auto) 0.500 Neut % (Auto) 52.9 Lymph % (Auto) 32.8 [place] % (Auto) 7.4 Eos % (Auto) 5.7 H Baso % (Auto) 0.7 Absolute Neuts (auto) 3.0 Absolute Lymphs (auto) 1.85 Nucleated RBC % 0 Sodium 136 Potassium 4.2 Chloride 106 Carbon Dioxide 24.0 Anion Gap 6 BUN 17 Creatinine 1.50 H Estim Creat Clear Calc 59.17 Est GFR (MDRD) Af Amer 66 Est GFR (MDRD) Non-Af 55 L BUN/Creatinine Ratio 11.3 Glucose 200 H Calcium 9.2 Total Bilirubin 0.50 AST 64 H ALT 93 H Alkaline Phosphatase 92 Total Protein 7.8 Albumin 3.6 Globulin 4.2 Albumin/Globulin Ratio 0.9 Lipase 49 Urine Color Yellow Urine Clarity Clear Urine pH 6.0 Ur Specific [place] 1.025 Urine Protein 500 H Urine Glucose (UA) 250 H Urine Ketones Negative Urine Occult Blood 10 H Urine Nitrite Negative Urine Bilirubin Negative Urine Urobilinogen Normal Ur Leukocyte Esterase Negative Urine RBC 0-5 SEEN Urine WBC 0 SEEN Ur Squamous Epith Cells 0 SEEN Urine Bacteria 0 SEEN Urine Mucus 0 SEEN Radiography Diagnostic Testing: Clinical Impression(s) from Imaging Studies Abdomen/Pelvis CT 04/09/24 08:46 IMPRESSION: Status post left nephrectomy with postoperative soft tissue changes. No evidence of abscess or fluid collection. Electronically Signed: Art Joseph MD at 11:07 EDT Reading Location ID and State: [facility] / [place] , Service support , Discharge Plan Triage Chief Complaint: Abd Pain ED Provider: Rojelio Hutton Dx/Rx/DC Orders Instructions: ED Post Op Wound Check, Pain Prescriptions: New tramadol 50 mg tablet 50 mg PO Q6H PRN (Reason: pain) Qty: 12 0RF No Action albuterol sulfate 90 mcg/actuation Hfa Aerosol Inhaler 2 puff INHALATION Q4H PRN (Reason: SOB) amlodipine 5 mg tablet 5 mg PO DAILY losartan 50 mg tablet 50 mg PO DAILY fluticasone propion-salmeterol 230-21 mcg/actuation HFA aerosol inhaler 2 puff inhalation BID Primary Care Provider: Remberto Woodruff NP Referrals: Remberto Woodruff NP, SOCIAL AND HUMAN SERVICES ASSISTANT-C [Primary Care Provider] - Print Language: Vincentian Disposition Disposition: Home, Self Care
[2024-04-09 08:53] LABS: Bacteria 0 SEEN /hpf (None Seen); Mucous, Urine 0 SEEN /hpf (<or=2+); Squamous Epithelial Cells - UA 0 SEEN /hpf (0-5); White Blood Cells 0 SEEN /hpf (0-5)
[2024-04-09 08:56] LABS: Color, Urine Yellow (Yellow); Glucose, Dipstick 250 mg/dl (Normal); Ketone-Dipstick Negative (Negative); Leukocyte Esterase-Dipstick Negative /ul (Negative); Nitrite-Dipstick Negative (Negative); Occult Blood-Urine 10 /ul (Negative); Protein-Dipstick 500 mg/dl (Negative); Specific Gravity, Urine 1.025 (1.002-1.030); Urine Bilirubin Dipstick Negative (Negative); Urine Clarity Clear (Clear); Urine Urobilinogen Normal (Normal)
[2024-04-09 08:59] LABS: Absolute Lymphocyte Count 1.85 X10^3/uL (0.83-4.51); Basophil# 0.04 X10^3/uL; Basophil% 0.7 % (0-1); Eosinophil# 0.32 X10^3/uL; Eosinophils% 5.7 % (0-5); Hematocrit 40.1 % (40-54); Hemoglobin 13.9 g/dL (13.0-16.5); Lymphocyte # 1.85 X10^3/ul (0.83-4.51); Lymphocyte % 32.8 % (19-41); Mean Corp Hgb Conc 34.7 g/dL (32-36); Mean Corpuscular Hgb 29.1 pg (27.0-32.0); Mean Corpuscular Volume 84.1 fL (80-94); Mean Platelet Vol. 9.8 fl (6.2-12.0); Monocyte# 0.42 X10^3/uL; Monocyte% 7.4 % (0-10); NRBC Flagged by Analyzer 0 % (0-5); Neutrophil # 2.98 X10^3/uL (2.7-7.7); Neutrophil % 52.9 % (47-70); Platelet Count 232 K/mm3 (150-450); RBC Distribution Width SD 39.7 fl (35.1-43.9); Red Blood Count 4.77 M/mm3 (4.6-6.2); White Blood Count 5.6 K/mm3 (4.4-11.0)
[2024-04-09 09:02] LABS: Red Blood Cells-Urine 0-5 SEEN /hpf (0-5)
[2024-04-09] MEDS: 0.9% Normal Saline (1000mL) 1,000 ML 999 ML IV (09:03)
[2024-04-09] MEDS: Ondansetron 4 MG/2 ML Vial IV (09:03)
[2024-04-09] MEDS: Morphine 4 MG/ML Syringe IV (09:04)
[2024-04-09 09:17] LABS: ALB/GLOB Ratio 0.9 RATIO (0.9-2.4); AST(SGOT) 64 U/L (15-37); Alanine Aminotransfer ALT/SGPT 93 U/L (16-61); Albumin, Serum 3.6 g/dL (3.2-5.0); Alkaline Phosphatase 92 U/L (45-117); Anion Gap 6 (5-15); BUN 17 mg/dL (7-18); BUN/Creat Ratio 11.3 RATIO (10-20); Calcium,Total 9.2 mg/dL (8.5-10.1); Chloride 106 mmol/L (98-107); EST Glomerular Filtration Rate 55 mL/min (>60); Est Glom Filt Rate - Afr Amer 66 mL/min (>60); Estimated Creatinine Clearance 59.17 ml/min; Globulin 4.2 g/dL (2.2-4.2); Glucose 200 mg/dL (74-106); Lipase 49 U/L (13-75); Potassium 4.2 mmol/L (3.5-5.1); Protein, Total 7.8 g/dL (6.4-8.2); Sodium Level 136 mmol/L (136-145)
== END 2024-04-09 11:37 | disposition home or self-care (01) ==
PROVIDERS: Emergency Provider Student in an Organized Health Care Education/Training Program; PCP Nurse Practitioner Family; Visit Provider Student in an Organized Health Care Education/Training Program
DX: G89.18 Other acute postprocedural pain (principal); R10.9 Unspecified abdominal pain; I10 Essential (primary) hypertension; Z90.5 Acquired absence of kidney; Z79.899 Other long term (current) drug therapy
CPT/HCPCS: 74177; 80053; 81001; 83690; 85025; 96361; 96374; 96375; 99283; J7030; Q9967; A4216; J2405

== ENCOUNTER 2024-05-16 11:03 | Emergency (ER) | payer BC, SELFPAY ==
[2024-05-16 11:04] VITALS: BP 164/96; PULSE 98; RESP 16; TEMP 36.6; O2SAT 99; BMI 31.8
[2024-05-16 11:05] VITALS: BP 125/81; PULSE 95; RESP 14; TEMP 36.6; O2SAT 98
[2024-05-16] MEDS: Clindamycin 600 MG/50 ML BAG 100 MG IV (11:52)
[2024-05-16 11:56] LABS: Absolute Lymphocyte Count 1.48 X10^3/uL (0.83-4.51); Absolute Neutrophil Count 4.8 X10^3/uL (2.0-7.7); Basophil# 0.02 X10^3/uL; Basophil% 0.3 % (0-1); Eosinophil# 0.24 X10^3/uL; Eosinophils% 3.4 % (0-5); Hematocrit 40.1 % (40-54); Hemoglobin 13.7 g/dL (13.0-16.5); Lymphocyte # 1.48 X10^3/ul (0.83-4.51); Lymphocyte % 20.9 % (19-41); Mean Corp Hgb Conc 34.2 g/dL (32-36); Mean Corpuscular Hgb 28.4 pg (27.0-32.0); Mean Platelet Vol. 9.4 fl (6.2-12.0); Monocyte# 0.49 X10^3/uL; Monocyte% 6.9 % (0-10); NRBC Flagged by Analyzer 0 % (0-5); Neutrophil # 4.83 X10^3/uL (2.7-7.7); Neutrophil % 68.2 % (47-70); Platelet Count 157 K/mm3 (150-450); RBC Distribution Width CV 13.1 % (11.6-14.6); RBC Distribution Width SD 39.6 fl (35.1-43.9); Red Blood Count 4.83 M/mm3 (4.6-6.2); White Blood Count 7.1 K/mm3 (4.4-11.0)
--- NOTE | 2024-05-16 12:08 | EDS_ITS ---
HPI History of Present Illness Chief Complaint: Wound Narrative Narrative: 43-year-old male past medical history of renal carcinoma status post nephrectomy presents at the direction of his primary care provider for IV antibiotics. He relates history that he had cellulitis in another area of his body at the beginning of the month. He finished 2 weeks of doxycycline. Over the last week, he developed small areas and pustules on his abdomen, and in his upper groin that were firm and red. He saw his primary care provider today who put him on Keflex today. However, he received a phone call from the [facility] who he had seen, and was told that they did investigating and that reportedly the doxycycline he was on did not kill everything and that review of cultures showed that he needed clindamycin. With suspicion for kidney damage from oral clindamycin, was reported that he needed to come to the ED for IV clindamycin and possible admission. Patient denies any fevers or chills, no nausea or vomiting, no other symptoms. [facility] Medical History Renal carcinoma Anxiety Kidney stones Hypertension Home Medications ?Medication ?Instructions ?Recorded ?Last Taken ?Type albuterol sulfate 90 mcg/actuation 2 puff inhalation Q4H PRN SOB 04/08/21 Unknown History aerosol inhaler amlodipine 5 mg tablet 5 mg PO DAILY 02/03/24 Unknown History fluticasone propionate 230 2 puff inhalation BID 02/03/24 Unknown History mcg-salmeterol 21 mcg/actuation HFA inhaler losartan 50 mg tablet 50 mg PO DAILY 02/03/24 Unknown History tramadol 50 mg tablet 50 mg PO Q6H PRN pain #12 tabs 04/09/24 Unknown Rx clindamycin HCl 300 mg capsule 300 mg PO Q6H #40 CAPSULES 05/16/24 Unknown Rx (Cleocin HCl) Allergy/AdvReac Type Severity Reaction Status Date / Time lisinopril Allergy Mild Rash Verified 05/16/24 11:04 oxycodone HCl (From Percocet) AdvReac Vomiting Verified 05/16/24 11:04 Surgical History History of nephrectomy, left Social History Smoking Status: Never smoker substance use type: does not use ROS ROS ED ROS Narrative Constitutional: No fever, no chills. HEENT: No sore throat. No neck pain. No loss of vision. No rhinorrhea. Cardiovascular: No chest pain. No palpitations. No pedal edema. Respiratory: No cough, no shortness of breath. Abdominal: No abdominal pain. No nausea. No vomiting. Genitourinary: No dysuria. No hematuria. Musculoskeletal: No myalgias. No arthralgias. Neurologic: No headaches. No dizziness. No lightheadedness. Skin: Positive pustules and erythema on abdomen, and in upper part of groin. Psychiatric: No depression. No anxiety. EXAM Physical Exam Narrative Exam Narrative: Afebrile. Nontoxic-appearing. Vital signs noted. Regular rate and rhythm. Lungs clear to auscultation bilaterally. Abdomen soft nontender with normal active bowel sounds. Small areas of pustules with surrounding erythema more consistent with folliculitis with cellulitis component. Const Vital Signs: 05/16/24 11:04 05/16/24 11:05 05/16/24 13:03 Temperature 97.8 F 97.8 F Temperature Source Temporal Oral Pulse Rate 98 95 82 Respiratory Rate 16 14 18 Blood Pressure 164/96 H 125/81 H 94/67 Blood Pressure Mean 118 95 76 Pulse Ox 99 98 96 Oxygen Delivery Method Room Air Room Air Room Air MDM MDM MDM Narrative Medical decision making narrative: While I do feel that antibiotics are indicated and should be changed based on the reported culture results, I do not feel that he necessarily needs admission for IV antibiotics. Additionally, although he is status post nephrectomy, I see no contraindication for use in patient status post nephrectomy or associated nephrotoxicity with clindamycin. I reviewed his laboratory work and he has normal white count at 7.1 with hemoglobin 13.7, platelet count normal at 157. Electrolyte panel is grossly unremarkable except for BUN of 20 and creatinine 1.54, glucose is elevated to 74 but he has normal anion gap of 6. Lactic acid is normal at 0.8. He does not meet any sepsis criteria. After 600 mg of IV clindamycin, I do feel that he can be discharged to follow-up with his primary care provider. He was written a prescription for clindamycin to take 4 times a day for 10 days. Currently, I do not feel that he meets any observation or admission criteria, and additionally, patient prefers going home on outpatient treatment. Disposition is discharged home in stable condition. Return instructions reviewed. History & Record Review Discussion w/independent historian: Patient Lab Data Attestation: I reviewed the patient's lab results. Labs: Laboratory Results - last 24 hr 05/16/24 11:46 WBC 7.1 RBC 4.83 Hgb 13.7 Hct 40.1 MCV 83.0 MCH 28.4 MCHC 34.2 RDW Std Deviation 39.6 RDW Coeff of Molly 13.1 Plt Count 157 MPV 9.4 Immature Gran % (Auto) 0.300 Neut % (Auto) 68.2 Lymph % (Auto) 20.9 [place] % (Auto) 6.9 Eos % (Auto) 3.4 Baso % (Auto) 0.3 Absolute Neuts (auto) 4.8 Absolute Lymphs (auto) 1.48 Nucleated RBC % 0 Sodium 136 Potassium 3.8 Chloride 106 Carbon Dioxide 24.0 Anion Gap 6 BUN 20 H Creatinine 1.54 H Estim Creat Clear Calc 57.44 Est GFR (MDRD) Af Amer 64 Est GFR (MDRD) Non-Af 53 L BUN/Creatinine Ratio 13.0 Glucose 274 H Lactic Acid 0.8 Calcium 8.7 Discharge Plan Triage Chief Complaint: Wound ED Provider: Marty Kiser Dx/Rx/DC Orders Clinical Impression: Cellulitis of abdominal wall, Folliculitis Instructions: ED Cellulitis, ED Folliculitis Prescriptions: New clindamycin HCl [Cleocin HCl] 300 mg capsule 300 mg PO Q6H Qty: 40 0RF No Action albuterol sulfate 90 mcg/actuation Hfa Aerosol Inhaler 2 puff INHALATION Q4H PRN (Reason: SOB) tramadol 50 mg tablet 50 mg PO Q6H PRN (Reason: pain) Qty: 12 0RF amlodipine 5 mg tablet 5 mg PO DAILY losartan 50 mg tablet 50 mg PO DAILY fluticasone propion-salmeterol 230-21 mcg/actuation HFA aerosol inhaler 2 puff inhalation BID Primary Care Provider: Remberto Woodruff NP Referrals: Remberto Woodruff NP, LABORATORY COURIER-C [Primary Care Provider] - 3-5 Days if not improving Activity Restrictions/Additional Instructions: Take the clindamycin instead of the cephalexin. Follow-up with your primary care provider in the next 3 to 5 days. Return with fever, new or worsening symptoms. Print Language: Panamanian Disposition Disposition: Home, Self Care
[2024-05-16 12:10] LABS: Anion Gap 6 (5-15); BUN 20 mg/dL (7-18); Calcium,Total 8.7 mg/dL (8.5-10.1); Chloride 106 mmol/L (98-107); Creatinine, Serum 1.54 mg/dL (0.70-1.30); EST Glomerular Filtration Rate 53 mL/min (>60); Est Glom Filt Rate - Afr Amer 64 mL/min (>60); Estimated Creatinine Clearance 57.44 ml/min; Glucose 274 mg/dL (74-106); Potassium 3.8 mmol/L (3.5-5.1); Sodium Level 136 mmol/L (136-145)
[2024-05-16 12:26] LABS: Lactic Acid 0.8 mmol/L (0.4-1.9)
[2024-05-16 13:03] VITALS: BP 94/67; PULSE 82; RESP 18; O2SAT 96
[2024-05-16 13:30] VITALS: BP 91/69; PULSE 93; RESP 23; TEMP 36.6; O2SAT 99
== END 2024-05-16 13:32 | disposition home or self-care (01) ==
PROVIDERS: Emergency Provider Emergency Medicine; PCP Nurse Practitioner Family; Visit Provider Emergency Medicine
DX: L03.311 Cellulitis of abdominal wall (principal); R73.9 Hyperglycemia, unspecified; L73.9 Follicular disorder, unspecified; I10 Essential (primary) hypertension; Z90.5 Acquired absence of kidney; Z87.442 Personal history of urinary calculi; Z85.528 Personal history of other malignant neoplasm of kidney
CPT/HCPCS: 80048; 83605; 85025; 96365; 99283; J7050; A4216

== ENCOUNTER 2025-08-04 09:49 | Emergency (ER) | payer BC, SELFPAY ==
[2025-08-04] VITALS (12 sets, daily range): BP systolic 143–173; BP diastolic 100–119; PULSE 73–92; RESP 18–28; TEMP 36.6–37.1; O2SAT 95–100; BMI 32.1
[2025-08-04 10:33] LABS: Hematocrit 44.7 % (40-54); Hemoglobin 15.7 g/dL (13.0-16.5); Immature Granulocytes Count 0.020 X10^3/uL (0.0-0.0); Mean Corp Hgb Conc 35.1 g/dL (32-36); Mean Corpuscular Volume 86.0 fL (80-94); Mean Platelet Vol. 9.3 fl (6.2-12.0); NRBC Flagged by Analyzer 0 % (0-5); Platelet Count 218 K/mm3 (150-450); RBC Distribution Width CV 12.4 % (11.6-14.6); RBC Distribution Width SD 38.8 fl (35.1-43.9); Red Blood Count 5.20 M/mm3 (4.6-6.2); White Blood Count 5.8 K/mm3 (4.4-11.0)
[2025-08-04 11:12] LABS: Anion Gap 11 (5-15); BUN 13 mg/dL (4-19); BUN/Creat Ratio 10.0 RATIO (10-20); Calcium,Total 9.0 mg/dL (7.6-11.0); Carbon Dioxide 26.2 mmol/L (21.0-32.0); Chloride 103 mmol/L (98-108); Estimated Creatinine Clearance 65.53 ml/min (50-250); Glucose 131 mg/dL (70-99); Potassium 3.6 mmol/L (3.3-5.1); Troponin T High Sensitivity 9 ng/L (<=22)
[2025-08-04 12:59] LABS: Troponin T High Sens 2 HR 8 ng/L (<=22)
== END 2025-08-04 13:37 | disposition home or self-care (01) ==
PROVIDERS: Emergency Provider Emergency Medicine; PCP Family Medicine; Visit Provider Emergency Medicine
DX: R20.2 Paresthesia of skin (principal); M54.12 Radiculopathy, cervical region; Z85.528 Personal history of other malignant neoplasm of kidney; Z90.5 Acquired absence of kidney; I10 Essential (primary) hypertension; Z79.899 Other long term (current) drug therapy; R07.9 Chest pain, unspecified
CPT/HCPCS: 71045; 72125; 80048; 84484; 85025; 93005; 99284; A4216